=== PATIENT | female | born 1965 | race Caucasian/White ===

== ENCOUNTER → 2018-02-19 08:00 | Outpatient (CLI) | payer OTHER, BC, SELFPAY ==
--- NOTE | 2018-02-19 08:00 | DT_ITS ---
This patient was seen during an EMR downtime February 17, 2018 - February 24, 2018. This patient may have a combination of paper and electronic documentation or all paper documentation. All documentation is viewable within the e-chart portion of [employer] for each patient visit.
--- NOTE | 2018-02-19 08:10 | BI_ITS ---
MAMMOGRAPHY - BILATERAL SCREENING REASON FOR EXAM: Female, 52 years old. Routine annual screening examination. PERTINENT HISTORY: PERSONAL HX @ AGE 50 WITH RIGHT LUMPECTOMY - IMPLANT ON RT, LIFT ON LT ? SOME REUDUCTION TECHNIQUE: Digital bilateral breast jinny (3D mammographic acquisition) in the CC and MLO projections. 2-D mediolateral oblique (MLO) and craniocaudad (CC) views of both breasts were obtained. CAD: Full Field Digital Mammography with Computer Added Detection was performed. COMPARISON: August 19, 2017, March 12, 2017 and April 24, 2016 FINDINGS: Breast Composition: The breasts are heterogeneously dense, which may obscure small masses. There are no dominant masses or suspicious calcifications. There is a scar in the upper outer quadrant of the right breast appears less prominent when compared to the previous study. No other significant abnormalities are identified. BI/SCREENING MAMM (CAD), BILAT IMPRESSION: Stable bilateral screening mammogram. Yearly follow-up mammogram recommended. (A) ASSESSMENT CATEGORY: BIRADS Category 2: Benign. A letter regarding these results will be sent to the patient by the facility within 30 days. Approximately 10% of breast cancers are not detected by mammography. A normal mammogram should not delay biopsy of a clinically suspicious abnormality. [id number] Electronically Signed: Jonah Jones MD at 14:51 EDT Tel , Service support ,
== END ==
PROVIDERS: Family Provider Family Medicine; PCP Family Medicine; Visit Provider Surgery
DX: Z12.31 Encounter for screening mammogram for malignant neoplasm of breast (principal)
CPT/HCPCS: 77063; 77067

== ENCOUNTER → 2018-03-13 13:36 | Outpatient (CLI) | payer OTHER, BC, SELFPAY | PROVIDERS: Family Provider Family Medicine; PCP Family Medicine; Visit Provider Obstetrics & Gynecology | DX: R30.0 Dysuria (principal) | CPT/HCPCS: 87086; 87088 ==

== ENCOUNTER → 2018-04-18 09:03 | Outpatient (CLI) | payer OTHER, BC, SELFPAY ==
[2018-04-18 11:15] LABS: Anion Gap 5 (5-15); BUN 12 mg/dL (7-18); BUN/Creat Ratio 13.3 RATIO (10-20); Calcium,Total 8.9 mg/dL (8.5-10.1); Chloride 107 mmol/L (98-107); Cholesterol 164 mg/dL (200); EST Glomerular Filtration Rate 69 mL/min (>60); Est Glom Filt Rate - Afr Amer 84 mL/min (>60); Glucose 86 mg/dL (74-106); High Density Lipoprotein 76 mg/dL; Potassium 4.2 mmol/L (3.5-5.1); Sodium Level 143 mmol/L (136-145); Triglycerides 76 mg/dL; Very Low Density Lipoprotein 15 mg/dL (5-40)
== END ==
PROVIDERS: Family Provider Family Medicine; PCP Family Medicine; Visit Provider Family Medicine
DX: I10 Essential (primary) hypertension (principal)
CPT/HCPCS: 36415; 80048; 80061

== ENCOUNTER → 2018-07-29 15:07 | Outpatient (CLI) | payer OTHER, BC, SELFPAY ==
[2018-07-29 18:14] LABS: Anion Gap 7 (5-15); BUN 14 mg/dL (7-18); BUN/Creat Ratio 15.9 RATIO (10-20); Calcium,Total 9.4 mg/dL (8.5-10.1); Chloride 100 mmol/L (98-107); Creatinine, Serum 0.88 mg/dL (0.55-1.02); EST Glomerular Filtration Rate 71 mL/min (>60); Est Glom Filt Rate - Afr Amer 86 mL/min (>60); Glucose 91 mg/dL (74-106); Potassium 3.8 mmol/L (3.5-5.1); Sodium Level 136 mmol/L (136-145)
== END ==
PROVIDERS: Family Provider Family Medicine; PCP Family Medicine; Visit Provider Family Medicine
DX: I10 Essential (primary) hypertension (principal)
CPT/HCPCS: 36415; 80048

== ENCOUNTER → 2018-07-30 16:52 | Outpatient (CLI) | payer OTHER, BC, SELFPAY ==
[2018-07-30 17:44] LABS: Absolute Lymphocyte Count 1.47 X10^3/ul (0.83-4.51); Absolute Neutrophil Count 2.9 X10^3/uL (2.0-7.7); Basophil# 0.01 X10^3/uL; Basophil% 0.2 % (0-1); Eosinophil# 0.07 X10^3/uL; Eosinophils% 1.5 % (0-5); Hemoglobin 12.6 g/dl (12.0-15.0); Lymphocyte # 1.47 X10^3/ul (4.0); Lymphocyte % 30.7 % (19-41); Mean Corp Hgb Conc 31.5 g/gl (32-36); Mean Corpuscular Hgb 28.1 pg (27.0-32.0); Mean Corpuscular Volume 89.3 fL (81-99); Mean Platelet Vol. 11.1 fl (6.2-12.0); Monocyte% 6.3 % (0-10); Neutrophil # 2.94 X10^3/uL (2.7-7.7); Neutrophil % 61.3 % (47-70); Platelet Count 242 K/mm3 (150-450); RBC Distribution Width CV 12.1 % (11.6-14.6); RBC Distribution Width SD 38.9 fl (35.1-43.9); Red Blood Count 4.48 M/mm3 (4.2-5.4); White Blood Count 4.8 K/mm3 (4.4-11.0)
[2018-07-30 17:53] LABS: POSITIVE COUNT NO; POSITIVE DIFFERENTIAL NO; POSITIVE MORPHOLOGY NO
== END ==
PROVIDERS: Family Provider Family Medicine; PCP Family Medicine; Visit Provider Family Medicine
DX: Z01.818 Encounter for other preprocedural examination (principal)
CPT/HCPCS: 36415; 85025

== ENCOUNTER → 2018-09-01 15:22 | Outpatient (CLI) | payer OTHER, BC, SELFPAY ==
[2018-09-01 18:02] LABS: Absolute Lymphocyte Count 1.51 X10^3/ul (0.83-4.51); Absolute Neutrophil Count 2.9 X10^3/uL (2.0-7.7); Basophil# 0.03 X10^3/uL; Basophil% 0.6 % (0-1); Eosinophil# 0.11 X10^3/uL; Eosinophils% 2.2 % (0-5); Hematocrit 40.6 % (37-47); Hemoglobin 13.2 g/dl (12.0-15.0); Lymphocyte # 1.51 X10^3/ul (4.0); Lymphocyte % 30.6 % (19-41); Mean Corp Hgb Conc 32.5 g/gl (32-36); Mean Corpuscular Hgb 28.8 pg (27.0-32.0); Mean Corpuscular Volume 88.6 fL (81-99); Mean Platelet Vol. 11.8 fl (6.2-12.0); Monocyte# 0.34 X10^3/uL; Monocyte% 6.9 % (0-10); Neutrophil # 2.94 X10^3/uL (2.7-7.7); Neutrophil % 59.5 % (47-70); Platelet Count 209 K/mm3 (150-450); RBC Distribution Width CV 12.1 % (11.6-14.6); RBC Distribution Width SD 38.7 fl (35.1-43.9); Red Blood Count 4.58 M/mm3 (4.2-5.4); White Blood Count 4.9 K/mm3 (4.4-11.0)
[2018-09-01 18:06] LABS: Anion Gap 7 (5-15); BUN 13 mg/dL (7-18); BUN/Creat Ratio 14.5 RATIO (10-20); Chloride 100 mmol/L (98-107); EST Glomerular Filtration Rate 69 mL/min (>60); Est Glom Filt Rate - Afr Amer 84 mL/min (>60); Glucose 121 mg/dL (74-106); Potassium 3.5 mmol/L (3.5-5.1); Sodium Level 136 mmol/L (136-145)
[2018-09-01 18:18] LABS: POSITIVE COUNT NO; POSITIVE DIFFERENTIAL NO; POSITIVE MORPHOLOGY NO
--- OUTSIDE RECORDS SUMMARY | 2018-12-04 08:00 | XMS RPT_ITS ---
:1965 Author Organization OHIP Support Name Relationship Address Phone NORWESSCH Unavailable [address] + [place] [address] JESSICA CORDERO Unavailable [address] + [place] [address] NORWESSCH Unavailable [address] + [place] [address] JESSICA CORDERO Unavailable [address] + [place] [address] NORWESSCH Unavailable [address] + [place] [address] CONSUELO JESSICA Unavailable [address] + [place] [address] NORWESSCH Unavailable [address] + [place] [address] CONSUELO JESSICA Unavailable [address] + [place] [address] NORWESSCH Unavailable [address] + [place] [address] CAROLINA CORDEROE Unavailable [address] + [place] [address] NORWESSCH Unavailable [address] + [place] [address] CAROLINA CORDEROE Unavailable [address] + [place] [address] NORWESSCH Unavailable [address] + [place] [address] CONSUELO JESSICA Unavailable [address] + [place] [address] NORWESSCH Unavailable [address] + [place] [address] ZOWILLIAM, JESSICA Unavailable [address] + [place] [address] NORWESSCH Unavailable [address] + [place] [address] ZOWILLIAM JESSICA Unavailable [address] + [place] [address] NORWESSCH Unavailable [address] + [place] [address] ZOWILLIAM, JESSICA Unavailable [address] + [place] [address] NORWESSCH Unavailable [address] + [place] [address] ZOWILLIAM, JESSICA Unavailable [address] + [place] [address] Care Team Providers Name Role Phone Dimitri, Liza Attending Unavailable Jolliff, Liza Primary Care Unavailable Cebul, Logan Attending Unavailable Cebul, Logan Referring Unavailable Jolliff, Liza Primary Care Unavailable Cebul, Logan Attending Unavailable Jolliff, Liza Referring Unavailable Marcanthony, Sammi Attending Unavailable Jolliff, Liza Referring Unavailable Jolliff, Liza Primary Care Unavailable Marcanthony, Sammi Attending Unavailable Jolliff, Liza Primary Care Unavailable Marcanthony, Sammi Referring Unavailable Cebul, Logan Attending Unavailable Jolliff, Liza Referring Unavailable Jolliff, Liza Primary Care Unavailable Jolliff, Liza Attending Unavailable Jolliff, Lzia Referring Unavailable Jolliff, Liza Primary Care Unavailable Jolliff, Liza Attending Unavailable Jolliff, Liza Primary Care Unavailable Jolliff, Liza Attending Unavailable Jolliff, Liza Primary Care Unavailable Cebul, Logan Attending Unavailable Jolliff, Liza Referring Unavailable Klaudia Deal Attending Unavailable PROBLEMS PROBLEMS DATE TYPE CONDITION / CODE ATTENDING STATUS SOURCE 03/14/2018 Unknown R30.0 - Dysuria Harpreet, Active Melissa / R30.0(ICD-10) [facility] Repository 03/12/2018 Unknown Z12.31 - Logan Fletcher Active Melissa Encounter for [facility] screening [facility] mammogram for Repository malignant neoplasm of breast / Z12.31(ICD-10) PROCEDURES PROCEDURES No Procedure Records FoundRESULTS RESULTS BASIC METABOLIC Collected: 09/01/2018 Status: F Source: [place] PROFILE (BMP) 3:23 PM [facility] [place] CODE TESTS RESULT OUT OF RANGE REFERENCE UNITS LAB L501.0100 74-106 mg/dL High GLU 121 Result Comment: Fasting Glucose result from 100 to 125 mg/dL suggests IMPAIRED HOMEOSTASIS per A.D.A. criteria. Please note revised GLUCOSE reference range effective 2017. LAB L501.1000 7-18 mg/dL Normal BUN 13 LAB L501.1100 0.55-1.02 mg/dL Normal CREAT,SERUM 0.90 Result Comment: The validity of the calculated GFR AND GFRAA in patients over 70 years has not been determined. Clinical correlation is essential. LAB L501.1110 >60 mL/min Normal EST GFR 69 Result Comment: Non- GFR Calc LAB L501.1115 >60 mL/min Normal EST GFR - AA 84 Result Comment: GFR Calc LAB L501.1300 10-20 RATIO Normal BUN/CRE 14.5 LAB L501.2200 8.5-10.1 mg/dL CA Normal 9.0 LAB L501.5300 136-145 mmol/L NA Normal 136 LAB L501.5600 3.5-5.1 mmol/L K Normal 3.5 LAB L501.5900 98-107 mmol/L CL Normal 100 LAB L501.6100 21.0-32.0 mmol/L Normal CO2 29.0 LAB L501.6200 5-15 Normal GAP 7 Performed By: #### L500.2500 #### [facility] [address] [place], [place] [address]all [address]y. [place], [place], [address] CBC W/DIFF, AUTOMATED Collected: 09/01/2018 Status: F Source: [place] 3:23 PM [facility] [place] TYPE CODE TESTS RESULT OUT OF RANGE REFERENCE UNITS LAB L100.1000 4.4-11.0 K/mm3 Normal WBC 4.9 LAB L100.1200 4.2-5.4 M/mm3 Normal RBC 4.58 LAB L100.1300 12.0-15.0 g/dl Normal HGB 13.2 LAB L100.1400 37-47 % Normal HCT 40.6 LAB L100.1500 81-99 fL Normal MCV 88.6 LAB L100.1600 27.0-32.0 pg Normal MCH 28.8 LAB L100.1700 32-36 g/gl Normal MCHC 32.5 LAB L100.1810 11.6-14.6 % Normal RDW CV 12.1 LAB L100.1820 35.1-43.9 fl Normal RDW SD 38.7 LAB L100.1900 150-450 K/mm3 Normal PLT 209 LAB L100.2000 6.2-12.0 fl Normal MPV 11.8 LAB L100.2100 47-70 % Normal NEUT% 59.5 LAB L100.2200 19-41 % Normal LY% 30.6 LAB L100.2300 0-10 % Normal MONO% 6.9 LAB L100.2400 0-5 % Normal EO% 2.2 LAB L100.2500 0-1 % Normal BASO% 0.6 LAB L100.2550 0.0-0.9 % Normal IM GRAN % 0.200 Result Comment: IG% - Immature Granulocytes (promyelocytes, myelocytes and metamyelocytes) > 1% indicates that a LEFT SHIFT is Present. LAB L100.2620 2.0-7.7 X10 3/uL Normal Absolute Neut 2.9 LAB L100.2720 0.83-4.51 X10 3/ul Normal Absolute Lymph 1.51 Performed By: #### L100.0100 #### [facility] [address] [place], [address] SURGERY VISIT REPORT Observed: 08/21/2018 Status: F Source: [place] 8:06 AM [facility] [place] [facility] [address] [place] [address] OFFICE VISIT Date of Service: 08/21/18 MR#: [id number] Acct: [id number] Name: HOLLIS CORDERO Rep #: [id number] : 1965 Provider: Logan Fletcher MD Age/Sex: 52/F Location: [facility] Status: Signed Intake Intake Visit Reasons: wound check Chief Complaint: Yearly breast exam Allergies azithromycin [From Zithromax Z-Jose] Allergy (Verified 08/21/18 07:58) Rash Medications Levocetirizine Dihydrochloride [Xyzal] 5 mg PO DAILY 05/23/16 [History Confirmed 03/13/18] Losartan Potassium [Cozaar] 50 mg PO DAILY 05/23/16 [History Confirmed 03/13/18] Simvastatin [Zocor] 40 mg PO QHS 05/23/16 [History Confirmed 03/13/18] loratadine-pseudoephedrine ER 10 mg-240 mg tablet,extended [id number] 1 tab PO QDAY 03/13/18 [History Confirmed 03/13/18] meloxicam 15 mg tablet 15 mg PO QDAY 03/13/18 [History Confirmed 03/13/18] PFSH Medical History Postoperative wound breakdown (Acute) Ductal carcinoma in situ (DCIS) of right breast (Acute) Hyperlipemia (Acute) Hypertension (Chronic) Hx of fracture (Acute) h/o left breast augmentation (Acute) Surgical History S/P breast lumpectomy (Acute) S/P hysterectomy (Acute) History of (Acute) H/O right mastectomy (Acute) S/P TRAM (transverse rectus abdominis muscle) flap breast reconstruction (Acute) Status post left breast reconstruction (Acute) Family History Father Diabetes Heart disease HPI HPI HPI: HOLLIS CORDERO, is a 52 F who presents to the office today for surgical evaluation of a post plastic surgery wound left breast. The patient recently has had fat grafting in the upper outer quadrant of her right breast at the site of a previous lumpectomy done for DCIS. My office notes from February 2018 below are explanatory. 2 weeks ago at [facility] she had fat grafting again performed upper outer quadrant right breast and she had reduction mammoplasty left breast. She has had drainage from the 6 o'clock position left breast inframammary area. She presents for me to assist with evaluation of this site. HPI: HOLLIS CORDERO, is a 52 F who presents to the office today for surgical follow-up regarding breast conservation surgery upper outer quadrant right breast that are performed for her with a diagnosis of DCIS. Previous notes reflect the following. HPI: HOLLIS CORDERO, is a 51 F who presents to the office today for surgical evaluation regarding postop concern. One week ago the patient had plastic surgical intervention regarding her right breast. Previously she had had breast conservation surgery with an upper outer quadrant right breast lumpectomy for DCIS margins were positive and did redo resection was required check at the initial aspect she also had a sentinel node biopsy. It is of additional note that after her original procedure she had a postoperative hematoma. She was concerned about the soft tissue loss at the resection site. So 1 week ago she had a prosthesis placed as well as fat grafting to the area. I have information dating back to September 06, 2016. On that date because DCIS was close to a margin I did a reexcision lumpectomy. That had been requested by both hematology oncology and radiation oncology. The reexcision showed a one by one by less than 1 mm area of residual DCIS. 3 out of 12 blocks had residual DCIS. Grade 3. The new margin was felt to be clear. Estrogen receptor 73% moderate. Progesterone was 7% weak. HER-2/manolo 3+. HER-2/manolo by FISH not performed. Pathologic staging was T(DCIS)Nx Mx Her original procedure was May 25, 2016. That was a wire localized lumpectomy upper outer right breast with right axillary blue dye sentinel lymph node biopsy. A request was made by hematology oncology to pursue the sentinel lymph node biopsy because of the extent of the DCIS. As noted above the original margin was felt to be positive. This preempted the re-excisional biopsy. Logan Fletcher M.D., F.A.C.S. Her current status is that she has had breast conservation work upper outer quadrant right breast. She had radiation treatment. She then had reduction mammoplasty on the left and she had a implant placed on the right with fat grafting in the upper outer quadrant of the right breast to fill in the lumpectomy defect area. There is still some dimpling at that area. There is been no nipple discharge. She has had recent mammograms with good results. Exam Chest Other: Right breast: Slight ecchymosis firmness noted upper outer quadrant right breast with otherwise well-healed curvilinear incision. Recent fat grafting causing induration. No distinct palpable masses in the medial portion of the breast. Left breast: Reduction mammoplasty incision. At the 6 o'clock position of the areola there is some slight wound separation. It appears to be healing at the dermal level just slight epidermal miss approximation. At the 6 o'clock position inframammary area there is evidence of skin necrosis and suture cutting. Assessment AND Plan Problems 1. Postoperative wound dehiscence, initial encounter T81.31XA Plan My clinical exam of the right breast is limited due to the recent fat grafting. I am not able to detect a focal area of concern. It is of note that her primary disease was DCIS upper outer quadrant right breast. [place] lymph node was negative Her left breast reduction mammoplasty has evidence of wound healing problems at the 6 o'clock position inframammary area. There is evidence of suture necrosis cutting through. I remove the sutures were today. There is a 8 x 8 mm area of dermal necrosis which I sharply scissor debrided today. It otherwise appears clean. There is no evidence of any cellulitis. I have instructed her to utilize Silvadene ointment twice daily to that inframammary wound. Patient already has some at home from previous wound issues. She would utilize that until resolved. Regarding her history of breast cancer her most recent mammograms were February 2018. She is due for repeat imaging February 2019 and I can follow-up clinically at that time. She has had an opportunity to ask and have questions answered. Further office follow-up regarding her wound left breast can be as needed. CC: Dr. Liza Fletcher M.D., F.A.C.S. Coding Level of Care Code Off vis,est,level 2 Diagnoses Postoperative wound dehiscence, initial encounter T81.31XA Encounter type: initial encounter 08/21/18 0806 <Electronically signed by Logan Fletcher MD> Date Logan Fletcher MD Cosigner Signature: Date (if applicable) CC: Liza Mosley MD CBC W/DIFF, AUTOMATED Collected: 07/30/2018 Status: F Source: [place] 4:53 PM [facility] [place] TYPE CODE TESTS RESULT OUT OF RANGE REFERENCE UNITS LAB L100.1000 4.4-11.0 K/mm3 Normal WBC 4.8 LAB L100.1200 4.2-5.4 M/mm3 Normal RBC 4.48 LAB L100.1300 12.0-15.0 g/dl Normal HGB 12.6 LAB L100.1400 37-47 % Normal HCT 40.0 LAB L100.1500 81-99 fL Normal MCV 89.3 LAB L100.1600 27.0-32.0 pg Normal MCH 28.1 LAB L100.1700 32-36 g/gl Low MCHC 31.5 LAB L100.1810 11.6-14.6 % Normal RDW CV 12.1 LAB L100.1820 35.1-43.9 fl Normal RDW SD 38.9 LAB L100.1900 150-450 K/mm3 Normal PLT 242 LAB L100.2000 6.2-12.0 fl Normal MPV 11.1 LAB L100.2100 47-70 % Normal NEUT% 61.3 LAB L100.2200 19-41 % Normal LY% 30.7 LAB L100.2300 0-10 % Normal MONO% 6.3 LAB L100.2400 0-5 % Normal EO% 1.5 LAB L100.2500 0-1 % Normal BASO% 0.2 LAB L100.2550 0.0-0.9 % Normal IM GRAN % 0.000 Result Comment: IG% - Immature Granulocytes (promyelocytes, myelocytes and metamyelocytes) > 1% indicates that a LEFT SHIFT is Present. LAB L100.2620 2.0-7.7 X10 3/uL Normal Absolute Neut 2.9 LAB L100.2720 0.83-4.51 X10 3/ul Normal Absolute Lymph 1.47 Performed By: #### L100.0100 #### [facility] [address] [place], [address] BASIC METABOLIC Collected: 07/29/2018 Status: F Source: [place] PROFILE (BMP) 3:14 PM [facility] [place] TYPE CODE TESTS RESULT OUT OF RANGE REFERENCE UNITS LAB L501.0100 74-106 mg/dL Normal GLU 91 Result Comment: Please note revised GLUCOSE reference range effective 2017. LAB L501.1000 7-18 mg/dL Normal BUN 14 LAB L501.1100 0.55-1.02 mg/dL Normal CREAT,SERUM 0.88 Result Comment: The validity of the calculated GFR AND GFRAA in patients over 70 years has not been determined. Clinical correlation is essential. LAB L501.1110 >60 mL/min Normal EST GFR 71 Result Comment: Non- GFR Calc LAB L501.1115 >60 mL/min Normal EST GFR - AA 86 Result Comment: GFR Calc LAB L501.1300 10-20 RATIO Normal BUN/CRE 15.9 LAB L501.2200 8.5-10.1 mg/dL CA Normal 9.4 LAB L501.5300 136-145 mmol/L NA Normal 136 LAB L501.5600 3.5-5.1 mmol/L K Normal 3.8 LAB L501.5900 98-107 mmol/L CL Normal 100 LAB L501.6100 21.0-32.0 mmol/L Normal CO2 29.0 LAB L501.6200 5-15 Normal GAP 7 Performed By: #### L500.2500 #### [facility] [address] [place], [address] BASIC METABOLIC Collected: 04/18/2018 Status: F Source: [place] PROFILE (BMP) 9:11 AM [facility] [place] TYPE CODE TESTS RESULT OUT OF RANGE REFERENCE UNITS LAB L501.0100 74-106 mg/dL Normal GLU 86 Result Comment: Please note revised GLUCOSE reference range effective 2017. LAB L501.1000 7-18 mg/dL Normal BUN 12 LAB L501.1100 0.55-1.02 mg/dL Normal CREAT,SERUM 0.90 Result Comment: The validity of the calculated GFR AND GFRAA in patients over 70 years has not been determined. Clinical correlation is essential. LAB L501.1110 >60 mL/min Normal EST GFR 69 Result Comment: Non- GFR Calc LAB L501.1115 >60 mL/min Normal EST GFR - AA 84 Result Comment: GFR Calc LAB L501.1300 10-20 RATIO Normal BUN/CRE 13.3 LAB L501.2200 8.5-10.1 mg/dL CA Normal 8.9 LAB L501.5300 136-145 mmol/L NA Normal 143 LAB L501.5600 3.5-5.1 mmol/L K Normal 4.2 LAB L501.5900 98-107 mmol/L CL Normal 107 LAB L501.6100 21.0-32.0 mmol/L Normal CO2 31.0 LAB L501.6200 5-15 Normal GAP 5 Performed By: #### L500.2500, L500.4100 #### [facility] [address] [place], [address] LIPID PROFILE Collected: 04/18/2018 Status: F Source: [place] 9:11 AM [facility] [place] TYPE CODE TESTS RESULT OUT OF RANGE REFERENCE UNITS LAB L501.4900 200 mg/dL Normal CHOL 164 Result Comment: <200 mg/dL Desirable 200-240 mg/dL Borderline >240 mg/dL High Risk LAB L501.5000 mg/dL Normal TRIG 76 Result Comment: The drugs N-Acetylcysteine and Metamizole may falsely depress this assay. Serum Triglycerides Reference Interval Normal <150 mg/dL Borderline high 150 - 199 mg/dL High 200 - 499 mg/dL Very High > or = 500 mg/dL LAB L501.6400 mg/dL Normal HDL 76 Result Comment: The drugs N-Acetylcysteine and Metamizole may falsely depress this assay. Reference Range HDL <40 mg/dL Low HDL Cholesterol HDL >or= 60 mg/dL High HDL Cholesterol LAB L501.6500 0-130 mg/dL Normal LDL 73 LAB L501.6600 5-40 mg/dL Normal VLDL 15 Performed By: #### L500.2500, L500.4100 #### [facility] [address] [place], [place], [address] PATTERN [employer]UM MAKER OFFICE VISIT Observed: 03/14/2018 Status: F Source: [place] REPORT 1:52 AM [facility] [place] [facility] [place] [place] [address] [place] [address] OFFICE VISIT Date of Service: 03/13/18 MR#: [id number] Acct: [id number] Name: PRADEEP CORDERODAVID Street Rep #: [id number] : 1965 Provider: Sammi Mullins MD Age/Sex: 52/F [place] [facility] [place]: Signed Intake Vital Signs03/13/18 Height 5 ft 4 in 03/13/18 Weight: 212 lb 6 oz 03/13/18 Body Mass Index (BMI) 36.4 Intake Visit Reasons: FOLLOW UP UTI PER SM Chief Complaint: Follow Up UTI Property Utilization Manager Required: No Is patient in pain?: No Allergies azithromycin [From Zithromax Z-Jose] Allergy (Verified 03/13/18 15:23) Rash Medications Levocetirizine Dihydrochloride [Xyzal] 5 mg PO DAILY 05/23/16 [History Confirmed 03/13/18] Losartan Potassium [Cozaar] 50 mg PO DAILY 05/23/16 [History Confirmed 03/13/18] Simvastatin [Zocor] 40 mg PO QHS 05/23/16 [History Confirmed 03/13/18] loratadine-pseudoephedrine ER 10 mg-240 mg tablet,extended [id number] 1 tab PO QDAY 03/13/18 [History Confirmed 03/13/18] meloxicam 15 mg tablet 15 mg PO QDAY 03/13/18 [History Confirmed 03/13/18] Is last menstrual period known: No Post menopausal: Yes Patient : No : No PFSH Medical History Ductal carcinoma in situ (DCIS) of right breast (Acute) Hyperlipemia (Acute) Hypertension (Chronic) Hx of fracture (Acute) h/o left breast augmentation (Acute) Surgical History S/P breast lumpectomy (Acute) S/P hysterectomy (Acute) History of (Acute) H/O right mastectomy (Acute) S/P TRAM (transverse rectus abdominis muscle) flap breast reconstruction (Acute) Status post left breast reconstruction (Acute) Family History Father Diabetes Heart disease Social History Smoking Status: Never smoker second hand exposure: No alcohol intake: never substance use type: does not use caffeine: No what type of physical activity do you participate in: none seatbelt use: always HPI FOLLOW UP UTI PER : Details: HOLLIS CORDERO is a 52 year old who presents for follow up of a uti. she was in [place] and started with signfiiacnt hematuria. she had a severe uti and was treated. symptoms resolved and she is afebrile now. it did start after intercourse and this is all new for her Female Reproductive History Questions: Dyspareunia: Yes (dryness) Pregancy History 2 Elective abortions Hx Para 2 Spontaneous abortions Past Pregnancies Del. DatName GA/WeeksOutcome Route [facility] LocaProviderFOB e ht en ia tn Unknown rojas Unknown ignacio ROS Const Constitutional: Reports system reviewed and no additional complaints, except as docu : Reports as per HPI Exam Const General: cooperative, healthy appearing, comfortable, no acute distress HENMT Head: normal to inspection, normocephalic Ears: hearing grossly normal bilaterally, external ears normal Nose: external nose normal, nares normal Face and sinus: normal facial exam Resp Effort AND Inspection: normal respiratory effort Musc Other: gross motor intact no deficits, full bilateral strength Skin General: no rashes or lesions noted Results BMSUA Office Urine Color Yellow Last Edit by Darlene Carney on 03/13/18 10:18 Office Urine Clarity Clear Last Edit by Darlene Carney on 03/13/18 10:18 Assessment AND Plan Problems 1. Acute cystitis with hematuria N30.01 Plan repeat culture, discussed if recurrent recommend postcoital prophylaxis Orders Orders: Coding Level of Care Code Off vis,est,level 3 Diagnoses Acute cystitis with hematuria N30.01 Urinary tract infection type: acute cystitis Hematuria presence: with hematuria 03/14/18 0152 <Electronically signed by Sammi Mullisn MD> Date Sammi Mullins MD Cosigner Signature: Date (if applicable) CC: SURGERY VISIT REPORT Observed: 03/13/2018 Status: F Source: [place] 5:51 PM [facility] [place] [facility] [address] [place] [address]. [address] [place] [address] OFFICE VISIT Date of Service: 03/13/18 MR#: [id number] Acct: [id number] Name: HOLLIS CORDERO Rep #: [id number] : 1965 Provider: Logan Fletcher MD Age/Sex: 52/F Location: [facility] Status: Signed Intake Intake Visit Reasons: YEARLY BILATERAL BREAST EXAM Chief Complaint: Yearly breast exam Property Utilization Manager Required: No Is patient in pain?: No Allergies azithromycin [From Zithromax Z-Jose] Allergy (Verified 03/13/18 15:23) Rash Medications Levocetirizine Dihydrochloride [Xyzal] 5 mg PO DAILY 05/23/16 [History Confirmed 03/13/18] Losartan Potassium [Cozaar] 50 mg PO DAILY 05/23/16 [History Confirmed 03/13/18] Simvastatin [Zocor] 40 mg PO QHS 05/23/16 [History Confirmed 03/13/18] loratadine-pseudoephedrine ER 10 mg-240 mg tablet,extended [id number] 1 tab PO QDAY 03/13/18 [History Confirmed 03/13/18] meloxicam 15 mg tablet 15 mg PO QDAY 03/13/18 [History Confirmed 03/13/18] PFSH Medical History Ductal carcinoma in situ (DCIS) of right breast (Acute) Hyperlipemia (Acute) Hypertension (Chronic) Hx of fracture (Acute) h/o left breast augmentation (Acute) Surgical History S/P breast lumpectomy (Acute) S/P hysterectomy (Acute) History of (Acute) H/O right mastectomy (Acute) S/P TRAM (transverse rectus abdominis muscle) flap breast reconstruction (Acute) Status post left breast reconstruction (Acute) Family History Father Diabetes Heart disease Social History Smoking Status: Never smoker second hand exposure: No alcohol intake: never substance use type: does not use caffeine: No what type of physical activity do you participate in: none seatbelt use: always HPI HPI HPI: HOLLIS CORDERO, is a 52 F who presents to the office today for surgical follow-up regarding breast conservation surgery upper outer quadrant right breast that are performed for her with a diagnosis of DCIS. Previous notes reflect the following. HPI: HOLLIS CORDERO, is a 51 F who presents to the office today for surgical evaluation regarding postop concern. One week ago the patient had plastic surgical intervention regarding her right breast. Previously she had had breast conservation surgery with an upper outer quadrant right breast lumpectomy for DCIS margins were positive and did redo resection was required check at the initial aspect she also had a sentinel node biopsy. It is of additional note that after her original procedure she had a postoperative hematoma. She was concerned about the soft tissue loss at the resection site. So 1 week ago she had a prosthesis placed as well as fat grafting to the area. I have information dating back to September 06, 2016. On that date because DCIS was close to a margin I did a reexcision lumpectomy. That had been requested by both hematology oncology and radiation oncology. The reexcision showed a one by one by less than 1 mm area of residual DCIS. 3 out of 12 blocks had residual DCIS. Grade 3. The new margin was felt to be clear. Estrogen receptor 73% moderate. Progesterone was 7% weak. HER-2/manolo 3+. HER-2/manolo by FISH not performed. Pathologic staging was T(DCIS)Nx Mx Her original procedure was May 25, 2016. That was a wire localized lumpectomy upper outer right breast with right axillary blue dye sentinel lymph node biopsy. A request was made by hematology oncology to pursue the sentinel lymph node biopsy because of the extent of the DCIS. As noted above the original margin was felt to be positive. This preempted the re-excisional biopsy. Logan Fletcher M.D., F.A.C.S. Her current status is that she has had breast conservation work upper outer quadrant right breast. She had radiation treatment. She then had reduction mammoplasty on the left and she had a implant placed on the right with fat grafting in the upper outer quadrant of the right breast to fill in the lumpectomy defect area. There is still some dimpling at that area. There is been no nipple discharge. She has had recent mammograms with good results. Mammogram Computer Aided Screening - 02/19/18 [facility] [place] Imaging Services [address] [place] [address] SCREENING MAMM (CAD), LEONIDAS MR#: [id number]:[id number] Name: HOLLIS CORDERO [facility] #:[id number] : 1965 52 From: Jonah Jones MD PCP:Liza Mosley MD Status:REG CLI Study:SCREENING MAMM (CAD), BILAT Date of Exam:02/19/18 Exam#[id number] Ordering Dr: Logan Fletcher MD MAMMOGRAPHY - BILATERAL SCREENING REASON FOR EXAM: Female, 52 years old. Routine annual screening examination. PERTINENT HISTORY: PERSONAL HX @ AGE 50 WITH RIGHT LUMPECTOMY - IMPLANT ON RT, LIFT ON LT ? SOME REUDUCTION TECHNIQUE: Digital bilateral breast jinny (3D mammographic acquisition) in the CC and MLO projections. 2-D mediolateral oblique (MLO) and craniocaudad (CC) views of both breasts were obtained. CAD: Full Field Digital Mammography with Computer Added Detection was performed. COMPARISON: August 19, 2017, March 12, 2017 and April 24, 2016 FINDINGS: Breast Composition: The breasts are heterogeneously dense, which may obscure small masses. There are no dominant masses or suspicious calcifications. There is a scar in the upper outer quadrant of the right breast appears less prominent when compared to the previous study. No other significant abnormalities are identified. BI/SCREENING MAMM (CAD), BILAT IMPRESSION: Stable bilateral screening mammogram. Yearly follow-up mammogram recommended. (A) ASSESSMENT CATEGORY: BIRADS Category 2: Benign. A letter regarding these results will be sent to the patient by the facility within 30 days. Approximately 10% of breast cancers are not detected by mammography. A normal mammogram should not delay biopsy of a clinically suspicious abnormality. [id number] Electronically Signed: Jonah Jones MD at 14:51 EDT Tel , Service support , I did review her mammograms with her. She does have significant scarring still in the upper outer quadrant of the right breast. Hard to determine how much this is related to her surgery and radiation and then subsequent fat grafting. Spiculation is present but this is felt to be consistent with her postoperative change. Exam Chest Other: Right breast: Very nice healed curvilinear incision upper outer quadrant right breast. Some slight soft tissue defect. Incision has well-healed very nicely. Diffuse fibrous change of the right breast. There is a healed inframammary incision at 6:00 but that scar slightly broader than the original scar in the upper quadrant right breast. No focally concerning mass. No axillary or clavicular adenopathy Left wrist: Evidence of reduction mammoplasty incisions. These incisions are broad and quite red. There is no signs of active infection. No focal mass. No nipple discharge. No axillary or clavicular adenopathy Resp Effort AND Inspection: normal respiratory effort Auscultation: clear to auscultation bilaterally Results BMSUA Office Urine Color Yellow Last Edit by Darlene Carney on 03/13/18 10:18 Office Urine Clarity Clear Last Edit by Darlene Carney on 03/13/18 10:18 Assessment AND Plan Problems 1. S/P breast lumpectomy Z98.890 2. Ductal carcinoma in situ (DCIS) of right breast D05.11 Plan 52-year-old female. Based upon the treatment for DCIS upper outer quadrant right breast she actually is at lower risk for recurrence. There are no focal areas currently of oncologic concern. She is not currently being routinely followed by hematology oncology or radiation oncology or plastic surgery. I have offered her a follow-up office visit at 6 months. She has had an opportunity ask and have questions answered. I am quite comfortable with her current progress. Believe that her long-term prognosis is quite good. Cc: Dr. Liza Fletcher M.D., F.A.C.S. Coding Level of Care Code Off vis,est,level 3 Diagnoses S/P breast lumpectomy Z98.890 Ductal carcinoma in situ (DCIS) of right breast D05.11 Time Spent (min) 30 03/13/18 7321 <Electronically signed by Logan Fletcher MD> Date Logan Fletcher MD Cosigner Signature: Date (if applicable) CC: Liza Mosley MD Observed: 03/13/2018 Status: F Source: [place] CULTURE, URINE 1:37 PM [facility] [facility] U[place] Culture Below infection level. ORGANISM 1: GNR lactose grove worker [place] Count <1000 Performed By: #### M100.0650 #### [facility] [address] [place], [address] DOWNTIME REPORT Observed: 03/06/2018 Status: F Source: [place] 12:17 PM [facility] Medical Records Department [address] [place] [address] Downtime Report MR#: [id number] Acct: [id number] Name: HOLLIS CORDERO Rep #: [id number] : 1965 52 From: Joe Ballard PCP: Liza Mosley MD Status: REG CLI This patient was seen during an EMR downtime February 17, 2018 - February 24, 2018. This patient may have a combination of paper and electronic documentation or all paper documentation. All documentation is viewable within the e-chart portion of [employer] for each patient visit. SCREENING MAMM (CAD), Observed: 02/20/2018 Status: F Source: [place] BILAT 12:06 PM [facility] Imaging Services [address] [place] [address] SCREENING MAMM (CAD), BILAT MR#: [id number] Acct: [id number] Name: HOLLIS CORDERO Rep #: [id number] : 1965 F 52 From: Jonah Jones MD PCP: Liza Mosley MD Status: REG CLI Study: SCREENING MAMM (CAD), BILAT Date of Exam: 02/19/18 Exam# [id number] Ordering Dr: Logan Fletcher MD MAMMOGRAPHY - BILATERAL SCREENING REASON FOR EXAM: Female, 52 years old. Routine annual screening examination. PERTINENT HISTORY: PERSONAL HX @ AGE 50 WITH RIGHT LUMPECTOMY - IMPLANT ON RT, LIFT ON LT ? SOME REUDUCTION TECHNIQUE: Digital bilateral breast jinny (3D mammographic acquisition) in the CC and MLO projections. 2-D mediolateral oblique (MLO) and craniocaudad (CC) views of both breasts were obtained. CAD: Full Field Digital Mammography with Computer Added Detection was performed. COMPARISON: August 19, 2017, March 12, 2017 and April 24, 2016 FINDINGS: Breast Composition: The breasts are heterogeneously dense, which may obscure small masses. There are no dominant masses or suspicious calcifications. There is a scar in the upper outer quadrant of the right breast appears less prominent when compared to the previous study. No other significant abnormalities are identified. BI/SCREENING MAMM (CAD), BILAT IMPRESSION: Stable bilateral screening mammogram. Yearly follow-up mammogram recommended. (A) ASSESSMENT CATEGORY: BIRADS Category 2: Benign. A letter regarding these results will be sent to the patient by the facility within 30 days. Approximately 10% of breast cancers are not detected by mammography. A normal mammogram should not delay biopsy of a clinically suspicious abnormality. [id number] Electronically Signed: Jonah Jones MD at 14:51 EDT Tel , Service support , CC: Liza Mosley MD; Logan Fletcher MD Karate Instructor: Signed ALLERGIES ALLERGIES DATE TYPE / CODE NAME / CODE REACTION SEVERITY SOURCE 08/21/2018 Drug azithromycin Rash Unknown [facility] Allergy/4160 /[id number]( Hospital 25532(SNOMED RXNORM) Repository CT) ENCOUNTERS ENCOUNTERS ADMIT/DISCHARGE ACCOUNT ADMITTING ENCOUNTER LOCATION SOURCE NUMBER CLASS 09/01/2018 [id number] Ambulatory [place] 4 [facility] ing:MFPLAB Repository 08/21/2018 [id number] Ambulatory BMSBuilding:B [place] 7 [facility] Repository 08/21/2018/ [id number] Ambulatory BMSBuilding:B [place] 8 4 [facility] Repository 07/30/2018 [id number] Ambulatory [place] 8 [facility] ing:MFPLAB Repository 07/29/2018 [id number] Ambulatory [place] 2 [facility] ing:MFPLAB Repository 04/18/2018 [id number] Ambulatory [place] 5 [facility] ing:LAB Repository 03/13/2018/ [id number] Ambulatory BMSBuilding:B [place] 8 4 [facility] Repository 03/13/2018 [id number] Ambulatory [place] 3 [facility] ing:LABSPEC Repository 03/13/2018/ [id number] Ambulatory BMSBuilding:B [place] 8 1 [facility] Repository 02/25/2018 [id number] Ambulatory BMSBuilding:B [place] 1 [facility] Repository 02/19/2018 [id number] Ambulatory [place] 4 [facility] ing:OPBI Repository PAYERS PAYERS ENCOUNTER GUARANTOR PAYER SUBSCRIBER SOURCE 09/01/[address] Primary HOLLIS L [place] [id number] Insurance:MEDICAL ZODYDOB: [facility] [id number] Number: Repository [address]Myd: [phone]) [id number] 464 () Date:4780-98-24TQ [address] [place] [address]AJ: 09/01/2018 Secondary KITA ZODYDOB: [place] Insurance:ANTHEMPolic [id number] Community y Number: Hospital [id number] Repository Date:6495-97-47IX [address] [place] [address] 72278ZY: 09/01/2018 Tertiary NOT GIVENUNK [place] Insurance:SELF PAY [facility] Number: Effective Repository Date:2018-09-01 08/21/2018 HOLLIS L Primary HOLLIS L [place] [id number] Insurance:MEDICAL ZODYDOB: [facility] [id number] Number: Repository [address]Fwa: [phone] [id number] 46 (HP) Date:5805-96-08UG [address] [place] [address]ZA: 08/21/2018 Secondary KITA ZODYDOB: [place] Insurance:ANTHEMPolic [id number] [facility] y Number: Hospital [id number] Repository Date:6250-27-08DC [address] [place] [address] 84376PI: 08/21/2018 Tertiary NOT GIVENUNK [place] Insurance:SELF PAY [facility] Number: Effective Repository Date:2018-08-21 08/21/2018 HOLLIS L Primary HOLLIS L [place] [id number] Insurance:MEDICAL ZODYDOB: [facility] [id number] Number: Repository [address]Fvy: 330 [id number] 46 (HP) Date:2026-93-72LA [address] [place] [address]RQ: 08/21/2018 Secondary KITA ZODYDOB: [place] Insurance:ANTHEMPolic [id number] Community y Number: Hospital [id number] Repository Date:6848-69-49IC [address]DBF, [place] [address]UI: 08/21/2018 Tertiary NOT GIVENUNK [place] Insurance:SELF PAY Community [facility] Number: Effective Repository Date:2018-08-21 07/30/2018 HOLLIS L Primary HOLLIS L [place] [id number] Insurance:MEDICAL ZODYDOB: Community [facility] [id number] Number: Repository [phone]: [phone]) [id number] 46 (HP) Date:3539-61-58QP [address] [place] [address]WG: 07/30/2018 Secondary KITA ZODYDOB: [place] Insurance:ANTHEMPolic [id number] Community y Number: Hospital [id number] Repository Date:3064-54-73CT [address] [place] [address] 84166OO: 07/30/2018 Tertiary NOT GIVENUNK [place] Insurance:SELF PAY [facility] Hospital Number: Effective Repository Date:2018-07-30 07/29/2018 HOLLIS L Primary HOLLIS L [place] [id number] Insurance:MEDICAL ZODYDOB: [facility] 1942-73-[place] Number: Repository [address]Pzr: 330 [id number] 46 (HP) Date:5237-22-91MR [address] [place] [address]GD: 07/29/2018 Secondary KITA ZODYDOB: [place] Insurance:ANTHEMPolic [id number] Community y Number: Hospital [id number] Repository Date:8293-30-67DA [address] [place] [address]YV: 07/29/2018 Tertiary NOT GIVENUNK [place] Insurance:SELF PAY [facility] Number: Effective Repository Date:2018-07-29 04/18/2018 HOLLIS L Primary HOLLIS L [place] [id number] Insurance:MEDICAL ZODYDOB: Community [facility] [id number] Number: Repository [id number]: [phone] [id number] 46 (HP) Date:8029-82-92GL [address] [place] [address]NE: 04/18/2018 Secondary KITA ZODYDOB: [place] Insurance:ANTHEMPolic [id number] Community y Number: Hospital [id number] Repository Date:3555-38-15DB [address] [place] [address] 922[address]UD: 04/18/2018 Tertiary NOT GIVENUNK [place] Insurance:SELF PAY [facility] Number: Effective Repository Date:2018-04-18 03/13/2018 HOLLIS L Primary HOLLIS L [place] [id number] Insurance:MEDICAL ZODYDOB: Community [facility] [id number] Number: Repository [address]Ymf: ([phone]) [id number] (HP) Date:5042-83-20OB [address] [place] [address]PC: 03/13/2018 Secondary KITA ZODYDOB: [place] Insurance:ANTHEMPolic [id number] Community y Number: Hospital [id number] Repository Date:4187-94-52DN [address] [place] [address] 655[address]RH: 03/13/2018 Tertiary NOT GIVENUNK [place] Insurance:SELF PAY [facility] Number: Effective Repository Date:2018-03-13 03/13/2018 HOLLIS L Primary HOLLIS L [place] [id number] Insurance:MEDICAL ZODYDOB: Community [facility] [id number] Number: Repository [phone]: [phone] [id number] (HP) Date:8518-97-97TV [address] [place] [address]PD: 03/13/2018 Secondary KITA ZODYDOB: [place] Insurance:ANTHEMPolic [id number] Community y Number: Hospital [id number] Repository Date:7967-51-75EG [address] [place] [address] 016[address]ET: 03/13/2018 Tertiary NOT GIVENUNK [place] Insurance:SELF PAY [facility] Number: Effective Repository Date:2018-03-13 03/13/2018 HOLLIS L Primary HOLLIS L [place] [id number] Insurance:MEDICAL ZODYDOB: [facility] [id number], [place] Number: Repository [address]Pap: 330 [id number] (HP) Date:1991-01-11BX [address] [place] [address]LM: 03/13/2018 Secondary KITA ZODYDOB: [place] Insurance:ANTHEMPolic [id number] Community y Number: Hospital [id number] Repository Date:5259-38-37XU [address] [place] [address] 470[address]TY: 03/13/2018 Tertiary NOT GIVENUNK [place] Insurance:SELF PAY [facility] Number: Effective Repository Date:2018-03-13 02/25/2018 HOLLIS L Primary HOLLIS L [place] [id number] Insurance:MEDICAL ZODYDOB: [facility] [id number] Number: Repository [address]Nzm: 330 [id number] (HP) Date:3333-96-32SN [address] [place] [address]JO: 02/25/2018 Secondary KITA ZODYDOB: [place] Insurance:ANTHEMPolic [id number] Community y Number: Hospital [id number] Repository Date:8321-29-74NK [address]QNRTZGX, [place] [address]RW: 02/25/2018 Tertiary NOT GIVENUNK [place] Insurance:SELF PAY [facility] Hospital Number: Effective Repository Date:2018-01-10 02/19/2018 HOLLIS L Primary HOLLIS L [place] [id number] Insurance:MEDICAL ZODYDOB: [facility] [id number] [place] Number: Repository [address]Jqb: [phone]) [id number] () Date:2303-08-41YU [address], [place] [address]RO: 02/19/2018 Secondary KITA ZODYDOB: [place] Insurance:ANTHEMPolic [id number] [facility] y Number: [facility] [id number] Repository Date:9284-30-91IF [address]XCTJGGV, [place] [address]YE: 02/19/2018 Tertiary NOT GIVENUNK [place] Insurance:SELF PAY [facility] Number: Effective Repository Date:2018-01-10
== END ==
PROVIDERS: Family Provider Family Medicine; PCP Family Medicine; Visit Provider Family Medicine
DX: Z01.818 Encounter for other preprocedural examination (principal); I10 Essential (primary) hypertension
CPT/HCPCS: 36415; 80048; 85025

== ENCOUNTER → 2019-01-12 | Outpatient (CLI) | payer OTHER, SELFPAY ==
[2018-12-16 08:23] VITALS: BMI 35.4
--- NOTE | 2019-01-12 07:24 | BI_ITS ---
MAMMOGRAPHY - BILATERAL SCREENING REASON FOR EXAM: Female, 53 years old. Routine annual screening examination. PERTINENT HISTORY: Personal history of breast cancer. Prior right lumpectomy. Prior right breast prostheses. TECHNIQUE: Digital bilateral breast jinny (3D mammographic acquisition) in the CC and MLO projections. 2-D mediolateral oblique (MLO) and craniocaudad (CC) views of both breasts were obtained. CAD: Full Field Digital Mammography with Computer Added Detection was performed. COMPARISON: Comparison is made with prior study dated February 19, 2018 and August 19, 2017. FINDINGS: Breast Composition: The breasts are heterogeneously dense, which may obscure small masses. There are no dominant masses or suspicious calcifications. The patient is status post lumpectomy in the deep upper lateral aspect of the right breast with overlying skin thickening. This is in keeping with postsurgical scarring. No other significant abnormalities are identified. There has been no significant change since the prior study. BI/SCREENING MAMM (CAD), BILAT IMPRESSION: Stable bilateral screening mammogram. Yearly follow-up mammogram recommended. (A) ASSESSMENT CATEGORY: BIRADS Category 2: Benign. A letter regarding these results will be sent to the patient by the facility within 30 days. Approximately 10% of breast cancers are not detected by mammography. A normal mammogram should not delay biopsy of a clinically suspicious abnormality. [id number] Electronically Signed: Claus Ambriz, at 12:17 EDT , Service support ,
== END | disposition home or self-care (01) ==
LOC: OPBI 07:04
PROVIDERS: Family Provider Family Medicine; PCP Family Medicine; Referring Provider Surgery; Visit Provider Surgery
DX: Z12.31 Encounter for screening mammogram for malignant neoplasm of breast (principal); Z85.3 Personal history of malignant neoplasm of breast
CPT/HCPCS: 77063; 77067

== ENCOUNTER → 2019-12-01 07:01 | Outpatient (CLI) | payer OTHER, SELFPAY ==
[2019-11-30 08:28] VITALS: BMI 35.4
--- NOTE | 2019-12-01 07:03 | BI_ITS ---
MAMMOGRAPHY - BILATERAL SCREENING REASON FOR EXAM: Female, 54 years old. Routine annual screening examination. PERTINENT HISTORY: Personal history of breast cancer. History of prior right lumpectomy with the left breast reduction and right breast implant. TECHNIQUE: Digital bilateral breast lamonte (3D mammographic acquisition) in the CC and MLO projections. 2-D mediolateral oblique (MLO) and craniocaudad (CC) views of both breasts were obtained. CAD: Full Field Digital Mammography with Computer Added Detection was performed. COMPARISON: Comparison is made with prior examination dated January 12, 2019 and February 19, 2018. FINDINGS: Breast Composition: The breasts are heterogeneously dense, which may obscure small masses. There are no dominant masses or suspicious calcifications. Stable appearance of the right breast implant. The patient is status post lumpectomy of the deep upper lateral aspect of the right breast. Postoperative scarring is seen at that site. Stable skin thickening of the right breast. Surgical clips are once again seen in the right axillary region. No other significant abnormalities are identified. There has been no significant change since the prior study. BI/SCREEN MAMM (CAD) W/LAMONTE BILAT IMPRESSION: Stable bilateral screening mammogram. Yearly follow-up mammogram recommended. (A) ASSESSMENT CATEGORY: BIRADS Category 2: Benign. A letter regarding these results will be sent to the patient by the facility within 30 days. Approximately 10% of breast cancers are not detected by mammography. A normal mammogram should not delay biopsy of a clinically suspicious abnormality. [id number] Electronically Signed: Claus Ambriz, at 9:35 EDT , Service support ,
== END ==
PROVIDERS: PCP Family Medicine; Referring Provider Surgery; Visit Provider Surgery
DX: Z12.31 Encounter for screening mammogram for malignant neoplasm of breast (principal)
CPT/HCPCS: 77063; 77067

== ENCOUNTER → 2020-08-08 16:25 | Outpatient (CLI) | payer OTHER, SELFPAY ==
[2020-04-11 14:13] VITALS: BMI 35.4
== END ==
PROVIDERS: PCP Family Medicine; Visit Provider Family Medicine
DX: U07.1 COVID-19 (principal); J06.9 Acute upper respiratory infection, unspecified
CPT/HCPCS: 87635; U0003

== ENCOUNTER → 2020-12-01 08:07 | Outpatient (CLI) | payer OTHER, SELFPAY ==
[2020-04-11 14:13] VITALS: BMI 35.4
--- NOTE | 2020-12-01 08:09 | BI_ITS ---
MAMMOGRAPHY - BILATERAL SCREENING REASON FOR EXAM: Female, 55 years old. Routine annual screening examination. PERTINENT HISTORY: Personal history of breast cancer. Prior right lumpectomy with the right breast implant. Left breast reduction surgery. TECHNIQUE: Digital bilateral breast lamonte (3D mammographic acquisition) in the CC and MLO projections. 2-D mediolateral oblique (MLO) and craniocaudad (CC) views of both breasts were obtained. CAD: Full Field Digital Mammography with Computer Added Detection was performed. COMPARISON: Comparison is made with prior study dated 12/01/2019 and 01/12/2019. FINDINGS: Breast Composition: The breasts are heterogeneously dense, which may obscure small masses. There are no dominant masses or suspicious calcifications. Surgical clips are seen in the right axillary region. The patient is status post lumpectomy in the deep upper lateral aspect of the right breast with postoperative scarring. Stable appearance of the right breast implant. Stable benign-appearing left axillary lymph nodes. No other significant abnormalities are identified. There has been no significant change since the prior study. BI/SCRN MAMM (CAD)W/LAMONTE BILAT IMPRESSION: Stable bilateral screening mammogram. Yearly follow-up mammogram recommended. (A) ASSESSMENT CATEGORY: BIRADS Category 2: Benign. A letter regarding these results will be sent to the patient by the facility within 30 days. Approximately 10% of breast cancers are not detected by mammography. A normal mammogram should not delay biopsy of a clinically suspicious abnormality. [id number] Electronically Signed: Claus Ambriz MD at 9:55 EDT , Service support ,
== END ==
PROVIDERS: PCP Family Medicine; Referring Provider Surgery; Visit Provider Surgery
DX: Z12.31 Encounter for screening mammogram for malignant neoplasm of breast (principal); D05.11 Intraductal carcinoma in situ of right breast
CPT/HCPCS: 77063; 77067

== ENCOUNTER → 2020-12-17 08:03 | Outpatient (CLI) | payer OTHER, SELFPAY ==
[2020-04-11 14:13] VITALS: BMI 35.4
[2020-12-17 08:33] LABS: Absolute Neutrophil Count 5.3 X10^3/uL (2.0-7.7); Basophil# 0.06 X10^3/uL; Basophil% 0.8 % (0-1); Eosinophils% 1.3 % (0-5); Hematocrit 42.6 % (37-47); Hemoglobin 13.7 g/dL (12.0-15.0); Lymphocyte % 21.3 % (19-41); Mean Corp Hgb Conc 32.2 g/dL (32-36); Mean Corpuscular Volume 90.1 fL (81-99); Mean Platelet Vol. 10.4 fl (6.2-12.0); Monocyte% 5.3 % (0-10); NRBC Flagged by Analyzer 0 % (0-5); Neutrophil # 5.34 X10^3/uL (2.7-7.7); Neutrophil % 71.2 % (47-70); Platelet Count 252 K/mm3 (150-450); RBC Distribution Width CV 12.2 % (11.6-14.6); RBC Distribution Width SD 40.1 fl (35.1-43.9); Red Blood Count 4.73 M/mm3 (4.2-5.4); White Blood Count 7.5 K/mm3 (4.4-11.0)
[2020-12-17 08:40] LABS: Microalbumin,Random Urine 11.8 mg/L (NO RANGE EST.); Microalbumin:Creatinine Ratio 7.6 mg/g CRE (<30 mg/g CRE)
[2020-12-17 08:44] LABS: AST(SGOT) 18 U/L (15-37); Alanine Aminotransfer ALT/SGPT 38 U/L (13-56); Anion Gap 4 (5-15); BUN 17 mg/dL (7-18); BUN/Creat Ratio 16.7 RATIO (10-20); Calcium,Total 9.1 mg/dL (8.5-10.1); Chloride 106 mmol/L (98-107); Cholesterol 208 mg/dL (200); Creatinine, Serum 1.02 mg/dL (0.55-1.02); EST Glomerular Filtration Rate 59 mL/min (>60); Est Glom Filt Rate - Afr Amer 72 mL/min (>60); Glucose 103 mg/dL (74-106); High Density Lipoprotein 101 mg/dL; Magnesium 2.1 mg/dL (1.6-2.6); Potassium 4.1 mmol/L (3.5-5.1); Sodium Level 139 mmol/L (136-145); Triglycerides 73 mg/dL; Very Low Density Lipoprotein 15 mg/dL (5-40)
== END ==
PROVIDERS: PCP Family Medicine; Visit Provider Family Medicine
DX: I10 Essential (primary) hypertension (principal); K21.9 Gastro-esophageal reflux disease without esophagitis; E78.5 Hyperlipidemia, unspecified
CPT/HCPCS: 36415; 80048; 80061; 82043; 82570; 83735; 84450; 84460; 85025

== ENCOUNTER → 2021-02-14 | Outpatient (CLI) | payer OTHER, SELFPAY ==
[2020-04-11 14:13] VITALS: BMI 35.4
== END | disposition home or self-care (01) ==
PROVIDERS: PCP Family Medicine; Visit Provider Family Medicine
DX: Z71.84 Encounter for health counseling related to travel (principal)
CPT/HCPCS: 87635; U0005; U0003

== ENCOUNTER → 2021-07-14 14:05 | Outpatient (CLI) | payer OTHER, SELFPAY ==
--- NOTE | 2021-07-14 14:23 | BI_ITS ---
MAMMOGRAPHY - UNILATERAL DIAGNOSTIC: RIGHT BREAST REASON FOR EXAM: Female, 55 years old. Right breast DCIS. PERTINENT HISTORY: Personal history of breast cancer. Prior left breast reduction surgery. Right breast implant. TECHNIQUE: Digital unilateral breast jinny (3D mammographic acquisition) in the CC and MLO projections. 2-D mediolateral oblique (MLO) and craniocaudad (CC) views of both breasts were obtained. CAD: Full Field Digital Mammography with Computer Added Detection was performed. COMPARISON: Comparison is made with prior study of 12/01/2020 and 12/01/2019. FINDINGS: Breast Composition: The breasts are heterogeneously dense, which may obscure small masses. Surgical clips are seen in the right axillary region. The previously seen microcalcifications in the right axillary region at increased in number. A biopsy is recommended for further evaluation. The right breast implant is unchanged. Once again, architectural distortion is seen in the upper outer aspect of the right breast at the lumpectomy site. No other significant abnormalities are identified. BI/DIAG MAMM W/CAD, UNILAT IMPRESSION: Since prior study, there has been an increase in number of calcifications in the cluster is seen in the right axillary region. Biopsy is recommended. ASSESSMENT CATEGORY: BIRADS Category 4: Suspicious - Biopsy Should Be Considered. A letter regarding these results will be sent to the patient by the facility within 30 days. Approximately 10% of breast cancers are not detected by mammography. A normal mammogram should not delay biopsy of a clinically suspicious abnormality. Electronically Signed: Claus Ambriz MD at 15:28 EDT , Service support ,
== END ==
PROVIDERS: PCP Family Medicine; Referring Provider Surgery; Visit Provider Surgery
DX: D05.11 Intraductal carcinoma in situ of right breast (principal)
CPT/HCPCS: 77061; 77065; G0279

== ENCOUNTER → 2021-07-21 10:56 | Outpatient (CLI) | payer OTHER, SELFPAY ==
--- NOTE | 2021-07-21 | IMM_PTH ---
PATIENT: HOLLIS CORDERO LOC: [facility] U#:[id number] AGE/SX: 59/F ROOM: RE07/21/[address]: Dr. Logan Fletcher MD : 1965 BED: DIS: SPEC #: [id number] RECD: 07/24/21 14:52 STATUS: KIERSTEN RUT #: [id number] SERENA: 07/21/21 00:[address]: Logan Fletcher DEPT: IMMUNOHISTOCHEMISTRY RECD BY: Shiela Roy ENTERED: 07/24/21 14:53 SP TYPE: IMMUNO OTHR DR: Dr. Liza Mosley MD Tissues: Right breast, NOS Procedures: CK8 (add) MACRO (add) P53 (add) Vimentin (add) Pankeratin (initial) PHYSICIAN & INSTITUTION [place] [id number] SPECIMEN INFORMATION: Tissue Source: Right breast Clinical Info: Right medial UIQ breast microcalcifications Specimen Number: [id number] #1 CPT code: 99885, 17521 x4 METHODOLOGY: Deparaffinized sections of prefer/formalin-fixed tissue or PAP/DQ stained slides are incubated with monoclonal/polyclonal antibodies/oligonucleotide probes. Localization is made via biotin free immunoperoxidase method. Appropriate controls are performed and reacted as expected. Results on target cell population are indicated in the following table: RESULTS: ANTIBODY / CLONE RESULT Block 1 AE1-3 (AE1/AE3/PCK26) negative Macro (HAM-56) positive Vimentin (V9) positive P53 (DO-7) negative CK8 ([id number]) negative These tests were developed and their performance characteristics determined by [facility]. They may not have been cleared or approved by the U.S. Food and Drug Administration. The FDA has determined that such clearance or approval is not necessary. The above immunohistochemical/dualISH markers are ordered and reviewed by the Pathologist. INTERPRETATION: Right breast, medial upper inner quadrant microcalcifications, stereotactic core biopsy: Fibrosis, benign histiocytic reaction and calcifications. AM:nate 07/25/2021
--- NOTE | 2021-07-21 | BRBX_PTH ---
PATIENT: HOLLIS CORDERO LOC: [facility] U#:[id number] AGE/SX: 59/F ROOM: RE07/21/[address]: Dr. Logan Fletcher MD : 1965 BED: DIS: SPEC #: [id number] RECD: 07/21/21 13:31 STATUS: KIERSTEN RUT #: [id number] SERENA: 07/21/21 00:[address]: Logan Fletcher DEPT: SURGICAL PATHOLOGY RECD BY: Can Carrion ENTERED: 07/21/21 13:32 SP TYPE: BREAST BX OTHR DR: Dr. Liza Mosley MD Tissues: Right breast, NOS Procedures: Surgery Specimen Level IV HEADER OPERATION: Right stereotactic breast biopsy PRE-OP DIAGNOSIS: Right medial Q breast microcalcifications TISSUE SUBMITTED: Right breast core tissue ISCHEMIC TIME: 1 minute FIXATION TIME: 55.5 hours MICROSCOPIC DIAGNOSIS Right medial breast, upper inner quadrant, stereotactic core biopsy: Banal clustered microcalcifications associated with fibrosis, chronic inflammation, benign histiocytic reaction and fat necrosis. See comment. AM:nate 07/24/2021 COMMENT Immunohistochemistry ([id number]) supports the above diagnosis. Case has been reviewed in consultation with Dr. Cee who concurs with the above diagnosis. IDC:ALLEY MICROSCOPIC DESCRIPTION Slides are reviewed. GROSS DESCRIPTION Received in fixative is one container labeled with the patient's name and designated right breast. The specimen consists of multiple elongated fragments of nicole-yellow fibroadipose tissue that in aggregate measure 5 x 3 x 2.5 cm. The entire specimen is submitted in two cassettes. / ALLEY:nate 07/21/21 TC:5 CPT: 81562
--- NOTE | 2021-07-21 10:49 | HP.PCM_ITS ---
History and Physical Date of Admission: 07/21/21 Intake Visit Reasons: abn mammo Chief Complaint: abn mammo Workers Compensation Attorney Required: No Is patient in pain?: No Allergies azithromycin [From Zithromax Z-Jose] Allergy (Verified 07/20/21 09:32) Rash Is last menstrual period known: No Post menopausal: Yes Patient : No PFS Medical History (Updated 07/20/21 @ 09:[address] Logan Fletcher MD) Ductal carcinoma in situ (DCIS) of right breast h/o left breast augmentation Hx of fracture Hyperlipemia Hypertension Postoperative wound breakdown Surgical History H/O right mastectomy History of S/P breast lumpectomy S/P hysterectomy S/P TRAM (transverse rectus abdominis muscle) flap breast reconstruction Status post left breast reconstruction Family History Father Diabetes Heart disease Aunt Ovarian cancer Social History Smoking Status: Never smoker second hand exposure: No alcohol intake: never substance use type: does not use caffeine: No what type of physical activity do you participate in: none seatbelt use: always additional social history: Patient is teacher at [employer] HPI HPI HPI: HOLLIS CORDERO, is a 55 F who presents to the office today for surgical follow-up of abnormal right unilateral mammogram. 6 months ago I had demonstrated some microcalcifications to areas of the right breast. Requested a right unilateral mammogram follow-up. 1 of those 2 areas seen in the right axillary area of increased in nature. There is persistent distortion at the lumpectomy site and she has has had a fat graft there. She does not detect anything on her examination I have information dating back to September 06, 2016. On that date because DCIS was close to a margin I did a reexcision lumpectomy. That had been requested by both hematology oncology and radiation oncology. The reexcision showed a one by one by less than 1 mm area of residual DCIS. 3 out of 12 blocks had residual DCIS. Grade 3. The new margin was felt to be clear. Estrogen receptor 73% moderate. Progesterone was 7% weak. HER-2/manolo 3+. HER-2/manolo by FISH not performed. Pathologic staging was T(DCIS)Nx Mx Her original procedure was May 25, 2016. That was a wire localized lumpectomy upper outer right breast with right axillary blue dye sentinel lymph node biopsy. A request was made by hematology oncology to pursue the sentinel lymph node biopsy because of the extent of the DCIS. As noted above the original margin was felt to be positive. This preempted the re-excisional biopsy.It is of additional note that after her original procedure she had a postoperative hematoma. She was concerned about the soft tissue loss at the resection site. So she had a prosthesis placed as well as fat grafting to the area. She also has had a reduction mammoplasty on the left 07/14/2021 MAMMOGRAPHY - UNILATERAL DIAGNOSTIC: RIGHT BREAST REASON FOR EXAM: Female, 55 years old. Right breast DCIS. PERTINENT HISTORY: Personal history of breast cancer. Prior left breast reduction surgery. Right breast implant. TECHNIQUE: Digital unilateral breast lamonte (3D mammographic acquisition) in the CC and MLO projections. 2-D mediolateral oblique (MLO) and craniocaudad (CC) views of both breasts were obtained. CAD: Full Field Digital Mammography with Computer Added Detection was performed. COMPARISON: Comparison is made with prior study of 12/01/2020 and 12/01/2019. FINDINGS: Breast Composition: The breasts are heterogeneously dense, which may obscure small masses. Surgical clips are seen in the right axillary region. The previously seen microcalcifications in the right axillary region at increased in number. A biopsy is recommended for further evaluation. The right breast implant is unchanged. Once again, architectural distortion is seen in the upper outer aspect of the right breast at the lumpectomy site. No other significant abnormalities are identified. BI/DIAG MAMM W/CAD, UNILAT IMPRESSION: Since prior study, there has been an increase in number of calcifications in the cluster is seen in the right axillary region. Biopsy is recommended. ASSESSMENT CATEGORY: BIRADS Category 4: Suspicious - Biopsy Should Be Considered. A letter regarding these results will be sent to the patient by the facility within 30 days. Approximately 10% of breast cancers are not detected by mammography. A normal mammogram should not delay biopsy of a clinically suspicious abnormality. Electronically Signed: Claus Ambriz MD at 15:28 EDT , Service support , 12/01/2020 MAMMOGRAPHY - BILATERAL SCREENING REASON FOR EXAM: Female, 55 years old. Routine annual screening examination. PERTINENT HISTORY: Personal history of breast cancer. Prior right lumpectomy with the right breast implant. Left breast reduction surgery. TECHNIQUE: Digital bilateral breast lamonte (3D mammographic acquisition) in the CC and MLO projections. 2-D mediolateral oblique (MLO) and craniocaudad (CC) views of both breasts were obtained. CAD: Full Field Digital Mammography with Computer Added Detection was performed. COMPARISON: Comparison is made with prior study dated 12/01/2019 and 01/12/2019. FINDINGS: Breast Composition: The breasts are heterogeneously dense, which may obscure small masses. There are no dominant masses or suspicious calcifications. Surgical clips are seen in the right axillary region. The patient is status post lumpectomy in the deep upper lateral aspect of the right breast with postoperative scarring. Stable appearance of the right breast implant. Stable benign-appearing left axillary lymph nodes. No other significant abnormalities are identified. There has been no significant change since the prior study. BI/SCRN MAMM (CAD)W/LAMONTE BILAT IMPRESSION: Stable bilateral screening mammogram. Yearly follow-up mammogram recommended. (A) ASSESSMENT CATEGORY: BIRADS Category 2: Benign. A letter regarding these results will be sent to the patient by the facility within 30 days. Approximately 10% of breast cancers are not detected by mammography. A normal mammogram should not delay biopsy of a clinically suspicious abnormality. [id number] Electronically Signed: Claus Ambriz MD at 9:55 EDT , Service support , ROS General General: No weight change, appetite, fatigue, colon cancer, breast cancer or weakness HEENT HEENT: No difficulty swallowing, eye injury, eye surgery, swollen glands or hoarseness Endo Endocrine: No thyroid disease, diabetes mellitus, thyroid cancer, Hair loss, heat intolerance or cold intolerance Cardio Cardiovascular: Yes high blood pressure; No murmur, pacemaker, heart disease, atrial fibrillation, heart attack, heart stent, palpitations, shortness of breat with exertion or chest pain Psych Psychiatric: No depression, anxiety or hearing voices Resp Respiratory: No shortness of breath, No sleep apnea, No cough, No COPD, No asthma, No emphysema and No wheezing Gastro Gastrointestinal: No abdominal pain, No nausea or vomiting, No diarrhea, No cons tipation, No blood in stool, No acid reflux, No hemorrhoids, No ulcers, No gallbladder problem and No black,tarry stools Sanket Hematologic: No blood thinners, No blood disorders, No bleeding, No anemia and No blood clots Neuro Neurologic: No weakness Exam Chest Other: Right breast: Well-healed curvilinear incision upper quadrant right breast. Well-healed right axillary incision. No focal mass. Mild diffuse fibrous change. Some tenderness lower outer right breast. Breast implant noted. Left breast reduction noted. No focal mass. No nipple discharge. No axillary or clavicular adenopathy. Assessment and Plan Assessment and Plan (1) Abnormal mammogram of right breast: Status: Acute Plan Details Additional Comments: Abnormal mammogram with clustered polymorphic calcifications right axillary area. My suspicion is that these are degenerative calcifications however they have increased in number. The patient did have DCIS right breast positive margin and had a reexcision to get clean margins. I propose for a stereotactic needle core biopsy right upper outer quadrant axillary breast. She is aware of technique, benefit, risk of alternatives. An attempt will be made at hopeful complete removal. She has had an opportunity to ask and have questions answered. We will schedule and expedite her care. Copy: Dr. Napoleon Cano and Dr. Liza Fletcher M.D., F.A.C.S. I have re-examined the patient. There are no clinical changes since date of exam. Logan Fletcher M.D., F.A.C.S.
--- NOTE | 2021-07-21 12:08 | PCM.OPRPT ---
Problems Associated Problem List Diagnoses (1) Abnormal mammogram of right breast: Report of Operation Date of Procedure: 07/21/21 Pre-Operative Diagnosis: Microcalcifications superior right breast axilla Post-Operative Diagnosis: Microcalcifications superior right breast Surgery/Procedure Performed:: Stereotactic needle core biopsy upper outer right breast Description of Surgical Findings:: Timeout and informed consent was obtained. 55-year-old female was taken to the stereotactic unit placed prone the table left breast was initially placed on the lateral medial view anticipating more of an axillary approach. Imaging was able to identify the microcalcifications and then stereotactic images were obtained but the depth suggested that it was more anterior so the arrangement was converted to a medial lateral approach to the upper outer right breast axillary area. Again the microcalcifications in question rapidly identified. Stereotactic images were obtained. Digital information was obtained on a single core site. The breast was prepped with Betadine. 1% lidocaine was used as a local anesthetic and a total of 10 cc was used. A 8 gauge mammotome core needle was advanced to prefire depth. Target on incinerator plant laborer was selecting replacing image 1. Because of the very superficial nature of the microcalcifications I had to adjust to a 12 mm core length. 12 cores were obtained. Imaging demonstrated several cores with microcalcifications present. Repeat breast imaging suggested microcalcifications still present in the patient had wanted to have the vast majority removed if feasible. We reimaged and relocalized the remaining set of calcifications. The core needle was reinserted and 6 more cores were obtained. A subsequent view suggested the vast majority Fredy cases removed. A small marking clip was left at 12 o'clock position. She was released with advised pressure was held for hemostasis. Steri-Strips Telfa OpSite dressings applied. She was given activity wound care instructions. The specimens had already immediately been placed in formalin for analysis. Specimens 18 cores. Drains none. Blood loss minimal. Logan Fletcher M.D., F.A.C.S. Surgeon: Logan Fletcher
== END ==
PROVIDERS: PCP Family Medicine; Referring Provider Surgery; Visit Provider Surgery
DX: N60.31 Fibrosclerosis of right breast (principal); I10 Essential (primary) hypertension; E78.5 Hyperlipidemia, unspecified; Z78.0 Asymptomatic menopausal state; Z85.3 Personal history of malignant neoplasm of breast; Z79.899 Other long term (current) drug therapy
CPT/HCPCS: 19081; 88305; 88341; 88342; J7050

== ENCOUNTER 2021-12-21 09:45 | Outpatient (CLI) | payer OTHER, SELFPAY ==
[2021-12-21 11:22] LABS: AST(SGOT) 20 U/L (15-37); Alanine Aminotransfer ALT/SGPT 34 U/L (13-56); Anion Gap 3 (5-15); BUN 19 mg/dL (7-18); BUN/Creat Ratio 17.6 RATIO (10-20); Calcium,Total 9.4 mg/dL (8.5-10.1); Chloride 111 mmol/L (98-107); Cholesterol 200 mg/dL (200); Creatinine, Serum 1.08 mg/dL (0.55-1.02); EST Glomerular Filtration Rate 55 mL/min (>60); Est Glom Filt Rate - Afr Amer 67 mL/min (>60); Glucose 109 mg/dL (74-106); High Density Lipoprotein 97 mg/dL; Potassium 4.3 mmol/L (3.5-5.1); Sodium Level 142 mmol/L (136-145); Triglycerides 49 mg/dL; Very Low Density Lipoprotein 10 mg/dL (5-40)
[2021-12-21 13:27] LABS: Microalbumin:Creatinine Ratio 4.8 mg/g CRE (<30 mg/g CRE)
== END 2021-12-21 23:59 | disposition home or self-care (01) ==
LOC: LAB 09:46
PROVIDERS: PCP Family Medicine; Referring Provider Family Medicine; Visit Provider Family Medicine
DX: E78.5 Hyperlipidemia, unspecified (principal); I10 Essential (primary) hypertension
CPT/HCPCS: 36415; 80048; 80061; 82043; 82570; 84450; 84460

== ENCOUNTER → 2022-07-20 | Outpatient (CLI) | payer OTHER, SELFPAY ==
--- NOTE | 2022-07-20 10:02 | BI_ITS ---
MAMMOGRAPHY - BILATERAL SCREENING REASON FOR EXAM: Female, 56 years old. Routine annual screening examination. PERTINENT HISTORY: Personal history of breast cancer. Prior right lumpectomy and breast implant. TECHNIQUE: Digital bilateral breast lamonte (3D mammographic acquisition) in the CC and MLO projections. 2-D mediolateral oblique (MLO) and craniocaudad (CC) views of both breasts were obtained. CAD: Full Field Digital Mammography with Computer Added Detection was performed. COMPARISON: Comparison is made with prior study of 12/01/2020 and 12/01/2019. FINDINGS: Breast Composition: The breasts are heterogeneously dense, which may obscure small masses. There are no dominant masses or suspicious calcifications. The patient is status post lumpectomy in the deep upper lateral aspect of the right breast with resultant postoperative deformity. A right-sided breast prosthesis is seen. Surgical clips are seen in the right axillary region. No other significant abnormalities are identified. There has been no significant change since the prior study. BI/SCRN MAMM (CAD)W/LAMONTE BILAT IMPRESSION: Stable bilateral screening mammogram. Yearly follow-up mammogram recommended. (A) ASSESSMENT CATEGORY: BIRADS Category 2: Benign. A letter regarding these results will be sent to the patient by the facility within 30 days. Approximately 10% of breast cancers are not detected by mammography. A normal mammogram should not delay biopsy of a clinically suspicious abnormality. [id number] Electronically Signed: Claus Ambriz MD at 11:15 EDT ,
== END | disposition home or self-care (01) ==
LOC: OPBI 10:01
PROVIDERS: PCP Family Medicine; Visit Provider Surgery
DX: Z12.31 Encounter for screening mammogram for malignant neoplasm of breast (principal); Z85.3 Personal history of malignant neoplasm of breast
CPT/HCPCS: 77063; 77067

== ENCOUNTER → 2022-09-20 | Outpatient (CLI) | payer OTHER, SELFPAY ==
--- NOTE | 2022-09-20 16:07 | VDLE_ITS ---
Reason For Study: pain RIGHT LEFT GSV is normal. GSV is normal. CFV is compressible, spontaneous, phasic, CFV is compressible, spontaneous, phasic, competent and demonstrates normal competent, and demonstrates normal augmentation. augmentation. FV is compressible, spontaneous, phasic, FV is compressible, spontaneous, phasic, competent and demonstrates normal competent and demonstrates normal augmentation. augmentation. POP V is compressible, spontaneous, phasic, POP V is compressible, spontaneous, phasic, competent and demonstrates normal competent and demonstrates normal augmentation. augmentation. T/P Trunk is compressible. T/P Trunk is compressible. PTV is compressible. PTV is compressible. RT PerV is compressible. LT PerV is compressible. Hypoechoic area behind the knee measuring .61 x 2.63 cm. Area is nonvascular. Procedure This is a venous duplex using B-mode, color flow and spectral Doppler. Exam performed in department. The exam was diagnostic. A preliminary report was called and/or faxed to Dr. Fletcher. VL/Venous Duplex US - Moiz Extrem Interpretation Summary No evidence for acute deep venous thrombosis bilateral lower extremities with p atent and compressible bilateral great saphenous veins. Right popliteal space 0.61 x 2.63 cm hypoechoic nonvascular structure consistent with a Louise's cyst. Clinical correlation woul d be appropriate. Ordering Physician: Logan Fletcher Referring Physician: Liza Mosley M.D. Performed By: Guzman Crawford RVMichael
== END | disposition home or self-care (01) ==
PROVIDERS: PCP Family Medicine; Referring Provider Surgery; Visit Provider Surgery
DX: M79.606 Pain in leg, unspecified (principal); M71.20 Synovial cyst of popliteal space [Baker], unspecified knee
CPT/HCPCS: 93970

== ENCOUNTER → 2022-10-24 | Outpatient (CLI) | payer OTHER, SELFPAY ==
--- NOTE | 2022-10-24 09:09 | EKG12_ITS ---
Test Reason : PRE Blood Pressure : / mmHG Vent. Rate : 072 BPM Atrial Rate : 072 BPM P-R Int : 188 ms QRS Dur : 088 ms QT Int : 390 ms P-R-T Axes : 060 060 065 degrees QTc Int : 427 ms Normal sinus rhythm Normal ECG Confirmed by LEONA HANCOCK, YOUNG ([id number]), website/blog editor LELE CHAND ([id number]) on 10/24/2022 2:46:45 PM Referred By: FREDERIC Confirmed By:YOUNG DELGADILLO MD
[2022-10-24 10:09] LABS: Hematocrit 42.6 % (37-47); Hemoglobin 13.9 g/dL (12.0-15.0); Mean Corp Hgb Conc 32.6 g/dL (32-36); Mean Corpuscular Hgb 28.8 pg (27.0-32.0); Mean Corpuscular Volume 88.4 fL (81-99); Mean Platelet Vol. 10.7 fl (6.2-12.0); Platelet Count 268 K/mm3 (150-450); RBC Distribution Width CV 12.7 % (11.6-14.6); RBC Distribution Width SD 41.3 fl (35.1-43.9); Red Blood Count 4.82 M/mm3 (4.2-5.4); White Blood Count 5.5 K/mm3 (4.4-11.0)
[2022-10-24 10:30] LABS: Anion Gap 6 (5-15); BUN 23 mg/dL (7-18); BUN/Creat Ratio 22.3 RATIO (10-20); Calcium,Total 9.5 mg/dL (8.5-10.1); Chloride 106 mmol/L (98-107); Creatinine, Serum 1.03 mg/dL (0.55-1.02); EST Glomerular Filtration Rate 58 mL/min (>60); Est Glom Filt Rate - Afr Amer 71 mL/min (>60); Glucose 162 mg/dL (74-106); Potassium 4.1 mmol/L (3.5-5.1); Sodium Level 141 mmol/L (136-145)
== END | disposition home or self-care (01) ==
PROVIDERS: PCP Family Medicine; Visit Provider Physician Assistant
DX: Z01.810 Encounter for preprocedural cardiovascular examination (principal)
CPT/HCPCS: 36415; 80048; 85027; 93005

== ENCOUNTER → 2022-11-02 | Outpatient (CLI) | payer OTHER, SELFPAY ==
--- NOTE | 2022-11-02 15:01 | VDLE_ITS ---
Reason For Study: Pain RIGHT GSV is normal. CFV is compressible, spontaneous, phasic, competent and demonstrates normal augmentation. FV is compressible, spontaneous, phasic, competent and demonstrates normal augmentation. POP V is compressible, spontaneous, phasic, competent and demonstrates normal augmentation. T/P Trunk is compressible. PTV is compressible. RT PerV is compressible. Nonvascularized structure noted in the right popliteal fossa that measures 1.34 x 3.32 x 5.05 cm. Procedure This is a venous duplex using B-mode, color flow and spectral Doppler. Exam performed in department. A preliminary report was called and/or faxed to [facility]. VL/Venous Duplex US, Unilateral Interpretation Summary There is no evidence of right lower extremity deep vein thrombosis. Right great saphenous vein appears patent and compressible segmentally. Right popliteal fossa 1.34 x 3.32 x 5.05 cm none vascular structure consistent with a Louise's cyst. Previously on September 20 this area measured 0.61 x 2.63 cm. Ordering Physician: Babatunde Mccormack Referring Physician: Liza Mosley M.D. Performed By: Zita Gu RVT
== END | disposition home or self-care (01) ==
LOC: CVS 14:59
PROVIDERS: PCP Family Medicine; Referring Provider Orthopaedic Surgery; Visit Provider Orthopaedic Surgery
DX: M79.604 Pain in right leg (principal)
CPT/HCPCS: 93971

== ENCOUNTER → 2022-12-28 | Outpatient (CLI) | payer OTHER, SELFPAY ==
[2022-12-28 12:59] LABS: Hemoglobin A1c 6.9 % (3.8-5.6)
[2022-12-28 13:02] LABS: Microalbumin,Random Urine 10.2 mg/L (NO RANGE EST.); Microalbumin:Creatinine Ratio 6.2 mg/g CRE (<30 mg/g CRE)
[2022-12-28 13:21] LABS: AST(SGOT) 17 U/L (15-37); Alanine Aminotransfer ALT/SGPT 28 U/L (13-56); Albumin, Serum 3.6 g/dL (3.2-5.0); Alkaline Phosphatase 72 U/L (45-117); Anion Gap 4 (5-15); BUN 16 mg/dL (7-18); Bilirubin, Direct 0.19 mg/dL (0.00-0.30); Calcium,Total 9.3 mg/dL (8.5-10.1); Chloride 110 mmol/L (98-107); Cholesterol 194 mg/dL (200); Creatinine, Serum 1.07 mg/dL (0.55-1.02); EST Glomerular Filtration Rate 56 mL/min (>60); Est Glom Filt Rate - Afr Amer 68 mL/min (>60); Globulin 3.6 g/dL (2.2-4.2); Glucose 124 mg/dL (74-106); High Density Lipoprotein 82 mg/dL; Potassium 4.1 mmol/L (3.5-5.1); Protein, Total 7.2 g/dL (6.4-8.2); Sodium Level 138 mmol/L (136-145); Thyroid Stim Hormone (TSH) 1.19 uIU/mL (0.358-3.74); Triglycerides 105 mg/dL; Very Low Density Lipoprotein 21 mg/dL (5-40)
== END | disposition home or self-care (01) ==
LOC: MFPLAB 10:28
PROVIDERS: PCP Family Medicine; Visit Provider Family Medicine
DX: E11.69 Type 2 diabetes mellitus with other specified complication (principal); E66.9 Obesity, unspecified
CPT/HCPCS: 36415; 80048; 80061; 80076; 82043; 82570; 83036; 84443

== ENCOUNTER → 2023-02-25 | Outpatient (CLI) | payer OTHER, SELFPAY ==
--- NOTE | 2023-02-25 | LES_PTH ---
PATIENT: HOLLIS CORDERO LOC: [facility] U#:[id number] AGE/SX: 57/F ROOM: RE02/25/[address]: Dr. Logan Fletcher MD : 1965 BED: DIS: 02/25/2023 SPEC #: [id number] RECD: 02/25/23 16:05 STATUS: KIERSTEN BETTENCOURT #: [id number] SERENA: 02/25/23 00:[address]: Logan Fletcher DEPT: SURGICAL PATHOLOGY RECD BY: Shyanne Rahman ENTERED: 02/26/23 08:00 SP TYPE: Lesion OTHR DR: Dr. Liza Mosley MD Tissues: A - Skin of arm B - Skin of leg, NOS Procedures: Surgery Specimen Level IV HEADER OPERATION: Excision of skin lesion left arm and left leg PRE-OP DIAGNOSIS: Skin lesion LLE and LUE TISSUE SUBMITTED: A ? Left lower arm, B ? Left lower leg MICROSCOPIC DIAGNOSIS A. Left lower arm skin lesion, excision: Dermatofibroma. Solar elastosis and hyperkeratosis. B. Left lower leg skin lesion, excision: Dermatofibroma. Hyperkeratosis. ALLEY:nate 02/27/2023 MICROSCOPIC DESCRIPTION Slides are reviewed. GROSS DESCRIPTION A - Received in fixative is one container labeled with the patient's name and designated left arm skin lesion. The specimen consists of a nicole-white skin ellipse measuring 0.7 x 0.3 x 0.2 cm. The specimen is inked, sectioned and submitted entirely in one cassette. B - Received in fixative is one container labeled with the patient's name and designated left leg skin lesion. The specimen consists of a piece of nicole-white skin measuring 0.6 x 0.3 x 0.2 cm. The specimen is serially sectioned and submitted entirely in one cassette. / ALLEY:nate 02/26/2023 TC:1 CPT: 00040 x2
== END | disposition home or self-care (01) ==
LOC: LABSPEC 16:13
PROVIDERS: PCP Family Medicine; Referring Provider Surgery; Visit Provider Surgery
DX: L98.9 Disorder of the skin and subcutaneous tissue, unspecified (principal)
CPT/HCPCS: 88305

== ENCOUNTER → 2023-06-28 | Outpatient (CLI) | payer OTHER, SELFPAY ==
--- NOTE | 2023-06-28 07:45 | BI_ITS ---
MAMMOGRAPHY - BILATERAL SCREENING REASON FOR EXAM: Female, 57 years old. Routine annual screening examination. PERTINENT HISTORY: Personal history of breast cancer. Right lumpectomy with radiation therapy. Right breast implant. TECHNIQUE: Digital bilateral breast lamonte (3D mammographic acquisition) in the CC and MLO projections. 2-D mediolateral oblique (MLO) and craniocaudad (CC) views of both breasts were obtained. CAD: Full Field Digital Mammography with Computer Added Detection was performed. COMPARISON: Comparison is made with prior study dated July 20, 2022 and July 14, 2021. FINDINGS: Breast Composition: The breasts are heterogeneously dense, which may obscure small masses. There are no dominant masses or suspicious calcifications. Consent, the patient is status post lumpectomy in the deep upper lateral aspect of the right breast with resultant postoperative deformity. A breast implant is seen. Surgical clips are also seen in the right axilla. No other significant abnormalities are identified. There has been no significant change since the prior study. BI/SCRN MAMM (CAD)W/LAMONTE BILAT IMPRESSION: Stable bilateral screening mammogram. Yearly follow-up mammogram recommended. (A) ASSESSMENT CATEGORY: BIRADS Category 2: Benign. A letter regarding these results will be sent to the patient by the facility within 30 days. Approximately 10% of breast cancers are not detected by mammography. A normal mammogram should not delay biopsy of a clinically suspicious abnormality. [id number] Electronically Signed: Claus Ambriz MD at 15:23 EDT ,
== END | disposition home or self-care (01) ==
LOC: OPBI 07:44
PROVIDERS: PCP Family Medicine; Referring Provider Surgery; Visit Provider Surgery
DX: Z12.31 Encounter for screening mammogram for malignant neoplasm of breast (principal); Z85.3 Personal history of malignant neoplasm of breast; Z98.82 Breast implant status
CPT/HCPCS: 77063; 77067

== ENCOUNTER → 2023-06-29 | Outpatient (CLI) | payer OTHER, SELFPAY ==
[2023-06-29 11:38] LABS: Glucose 130 mg/dL (74-106)
== END | disposition home or self-care (01) ==
LOC: LAB 10:56
PROVIDERS: PCP Family Medicine; Visit Provider Family Medicine
DX: E11.9 Type 2 diabetes mellitus without complications (principal)
CPT/HCPCS: 36415; 82947

== ENCOUNTER → 2023-09-30 | Outpatient (CLI) | payer OTHER, SELFPAY ==
[2023-09-30 13:53] LABS: AST(SGOT) 16 U/L (15-37); Alanine Aminotransfer ALT/SGPT 25 U/L (13-56); Albumin, Serum 3.8 g/dL (3.2-5.0); Alkaline Phosphatase 74 U/L (45-117); Anion Gap 6 (5-15); BUN 16 mg/dL (7-18); BUN/Creat Ratio 16.9 RATIO (10-20); Bilirubin, Direct 0.19 mg/dL (0.00-0.30); Calcium,Total 9.3 mg/dL (8.5-10.1); Chloride 107 mmol/L (98-107); Cholesterol 209 mg/dL (200); Creatinine, Serum 0.95 mg/dL (0.55-1.02); EST Glomerular Filtration Rate 64 mL/min (>60); Est Glom Filt Rate - Afr Amer 78 mL/min (>60); Globulin 3.7 g/dL (2.2-4.2); Glucose 120 mg/dL (74-106); High Density Lipoprotein 85 mg/dL; Potassium 3.9 mmol/L (3.5-5.1); Protein, Total 7.5 g/dL (6.4-8.2); Sodium Level 140 mmol/L (136-145); Triglycerides 76 mg/dL; Very Low Density Lipoprotein 15 mg/dL (5-40)
[2023-09-30 14:46] LABS: Microalbumin,Random Urine 11.9 mg/L (NO RANGE EST.); Microalbumin:Creatinine Ratio 9.2 mg/g CRE (<30 mg/g CRE)
== END | disposition home or self-care (01) ==
LOC: MFPLAB 11:15
PROVIDERS: PCP Family Medicine; Visit Provider Family Medicine
DX: E11.69 Type 2 diabetes mellitus with other specified complication (principal)
CPT/HCPCS: 36415; 80048; 80061; 80076; 82043; 82570

== ENCOUNTER → 2024-07-31 | Outpatient (CLI) | payer OTHER, SELFPAY ==
--- NOTE | 2024-07-31 15:28 | BI_ITS ---
MAMMOGRAPHY - BILATERAL SCREENING REASON FOR EXAM: Female, 58 years old. Routine annual screening examination. PERTINENT HISTORY: Personal history of breast cancer. Prior right lumpectomy and radiation therapy. Right breast implant. Left breast reduction due to left fat necrosis. TECHNIQUE: Digital bilateral breast lamonte (3D mammographic acquisition) in the CC and MLO projections. 2-D mediolateral oblique (MLO) and craniocaudad (CC) views of both breasts were obtained. CAD: Full Field Digital Mammography with Computer Added Detection was performed. COMPARISON: Comparison is made with prior study dated June 28, 2023 and July 20, 2022. FINDINGS: Breast Composition: The breasts are heterogeneously dense, which may obscure small masses. There are no dominant masses or suspicious calcifications. Stable appearance of the right breast implant. The patient is status post lumpectomy in the deep upper lateral aspect of the right breast with resultant postoperative deformity. Surgical clips are once again seen in the right axilla. No other significant abnormalities are identified. There has been no significant change since the prior study. BI/SCRN MAMM (CAD)W/LAMONTE BILAT IMPRESSION: Stable bilateral screening mammogram. Yearly follow-up mammogram recommended. (A) ASSESSMENT CATEGORY: BIRADS Category 2: Benign. A letter regarding these results will be sent to the patient by the facility within 30 days. Approximately 10% of breast cancers are not detected by mammography. A normal mammogram should not delay biopsy of a clinically suspicious abnormality. [id number] Electronically Signed: Claus Ambriz MD at 8:19 EST ,
== END | disposition home or self-care (01) ==
LOC: OPBI 15:26
PROVIDERS: PCP Family Medicine; Referring Provider Nurse Practitioner Women's Health; Visit Provider Nurse Practitioner Women's Health
DX: Z12.31 Encounter for screening mammogram for malignant neoplasm of breast (principal); Z85.3 Personal history of malignant neoplasm of breast
CPT/HCPCS: 77063; 77067

== ENCOUNTER → 2024-09-07 | Outpatient (CLI) | payer OTHER, SELFPAY ==
[2024-09-07 12:26] LABS: AST(SGOT) 17 U/L (15-37); Alanine Aminotransfer ALT/SGPT 30 U/L (13-56); Albumin, Serum 3.5 g/dL (3.2-5.0); Alkaline Phosphatase 81 U/L (45-117); Anion Gap 4 (5-15); BUN 15 mg/dL (7-18); BUN/Creat Ratio 14.7 RATIO (10-20); Bilirubin, Direct 0.12 mg/dL (0.00-0.30); Calcium,Total 9.1 mg/dL (8.5-10.1); Chloride 107 mmol/L (98-107); Cholesterol 190 mg/dL (200); Creatinine, Serum 1.02 mg/dL (0.55-1.02); EST Glomerular Filtration Rate 59 mL/min (>60); Est Glom Filt Rate - Afr Amer 71 mL/min (>60); Globulin 3.6 g/dL (2.2-4.2); Glucose 140 mg/dL (74-106); High Density Lipoprotein 79 mg/dL; Protein, Total 7.1 g/dL (6.4-8.2); Sodium Level 139 mmol/L (136-145); Triglycerides 240 mg/dL; Very Low Density Lipoprotein 48 mg/dL (5-40)
[2024-09-07 12:45] LABS: Protein, Urine (Random) 12.2 mg/dL (<11.9); Protein:Creat Ratio 83 mg/g CRE (0-200)
== END | disposition home or self-care (01) ==
LOC: MFPLAB 10:43
PROVIDERS: PCP Family Medicine; Referring Provider Family Medicine; Visit Provider Family Medicine
DX: E11.69 Type 2 diabetes mellitus with other specified complication (principal); E78.5 Hyperlipidemia, unspecified
CPT/HCPCS: 36415; 80048; 80061; 80076; 82570; 84156; 84443

== ENCOUNTER 2025-04-14 09:15 | Outpatient (RCR) | payer OTHER, SELFPAY ==
[2025-03-31 08:56] VITALS: BP 141/69; PULSE 88; RESP 16; TEMP 36.2; BMI 33.3
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
--- NOTE | 2025-03-31 14:19 | WC ---
PHOTO 03/31/[address] [facility] LOWER LEG
[2025-04-14 09:38] VITALS: BP 127/86; TEMP 36.7; BMI 33.3
--- NOTE | 2025-04-14 12:51 | PN.PCM_ITS ---
History of Present Illness Date of Service: 04/14/25 Chief Complaint: Full-thickness wound right ankle secondary to trauma History of Wound: Full-thickness wound right ankle secondary to trauma Progress of Wound: Stable healing full-thickness wound right calf. Subjective Subjective Patient is a 59-year-old female presented to wound care center today for follow- up evaluation of full-thickness wound to the right calf area secondary to trauma. The patient has been doing dressing changes as discussed with moist Kathy and dry sterile dressing and compression wrap. Patient states that her wound is over 50% healed. She has no pain to right lower extremity. She denies any drainage. She states there is no redness. She is very grateful for her care. Denies any new onset of trauma. Denies constitutional symptoms. No other pedal complaints at this time. Objective Data Objective Data Vital Signs: Vital Signs Temp Pulse Resp BP O2 Del Method 98.1 F 88 16 127/86 H Room Air 04/14/25 09:38 03/31/25 08:56 03/31/25 08:56 04/14/25 09:38 04/14/25 09:38 Oxygen Delivery Method Room Air Weight: 87.997 kg Body Mass Index (BMI) 33.3 Physical Exam Narrative Vascular: DP and PT pulse are palpable to right lower extremity. CFT is brisk. Skin temperature is warm to warm from proximal ankles to distal digit to the right lower extremity. No erythema or increase in warmth is appreciated. No hemosiderin deposits are noted. Nonpitting edema appreciated to the right lower extremity. Neurological: Light touch intact. Patient does follow painful stimuli. Dermatological: Full-thickness wound appreciated to the right posterior ankle measuring 0.8 x 0.8 x 0.1 cm wound base is granular with no sign of infection. Improving hematoma to the right ankle. Excisional debridement down to including subcutaneous tissue of the right posterior ankle full-thickness wound done without incident. Predebridement measurements are 0.7 x 0.6 x 0.1 cm. Postdebridement measurements are 0.8 x 0.8 x 0.1 cm. Musculoskeletal: Muscle strength 5 out of 5 in all quadrants right lower extremity. No pain to the full-thickness wound. No pain with calf pressure. Debridement Note Debridement Note Debridement Free Text: Excisional debridement down to including subcutaneous tissue of the right posterior ankle full-thickness wound done without incident. Predebridement measurements are 0.7 x 0.6 x 0.1 cm. Postdebridement measurements are 0.8 x 0.8 x 0.1 cm. Post-Debridement Measurements and Additional Note: Post-Debridement Measurements/Treatment - Nurse 1 - General Ulcer Assessment Start: 03/31/25 08:56 Freq: Status: Active Protocol: WILFRED Activity Type Activity Date Activity User E-sign Co-sign Detail Recorded Client Recorded Date Recorded By Document 03/31/25 08:56 [id number] 03/31/25 09:08 Document 04/14/25 09:38 MT [id number] 04/14/25 09:41 MT 03/31/25 04/14/25 08:56 09:38 WC - Today's Visit Information Type of service Initial Visit Follow-up Visit (Physician/DATA ANALYTICS SPECIALIST ) Arrival Mode Ambulatory Ambulatory Accompanied by self Patient Identification Verified (Name & Yes Yes ) Patient Requires Transmission-Based No Precautions Safety Precautions Fall Prevention Height and Weight Height 5 ft 4 in Weight 87.997 kg Weight in Pounds 194.0 lbs Weight Measurement Method Stated by Patient Body Mass Index (BMI) 33.3 33.3 BMI Classification Obese Obese Vital Signs Temperature (97.8 F-99.1 F) 97.2 F L 98.1 F Temperature Source Temporal Temporal Pulse Rate (60-100) 88 Pulse Location Monitor Monitor Respiratory Rate (12-18) 16 Respiratory rate source Observation Observation Oxygen Delivery Method Room Air Room Air Blood Pressure (90/60-120/80) 141/69 H 127/86 H Blood Pressure Mean (mm Hg) 93 99 Source Monitor Monitor Position Sitting Sitting Blood Pressure Location Left Arm Right Arm History Since Last Visit- (Skip if this is Patient's initial visit) Has dressing in place as prescribed Yes Has compression in place as prescribed Yes Has offloadiing in place as prescribed Yes Experienced any changes in pain level or Yes management Left Footwear Regular Shoe Regular Shoe Right Footwear Regular Shoe Regular Shoe Pain Scale: 0-10 Numeric Is Patient Pain Free? Yes Yes ALLISON - Nurse 1 - General Ulcer Measurement Start: 03/31/25 08:56 Freq: Status: Active Protocol: Activity Type Activity Date Activity User E-sign Co-sign Detail Recorded Client Recorded Date Recorded By Document 03/31/25 08:56 [id number] 03/31/25 09:08 CP Document 04/14/25 09:38 MT [id number] 04/14/25 09:41 FL 03/31/25 04/14/25 08:56 09:38 Wound Center Nurse 1 1. right medial lower leg -Current Size (cm) - Length 1.2 1 -Current Size (cm) - Width 2.2 0.6 -Current Size (cm) - Depth 0.1 0.1 -Total Square Cm 2.64 0.6 -Date of Last Picture (Recall this 04/14/25 field) -Photo Taken Yes Yes -Tunneling No -Undermining/Tunneling No -Circular Undermining No -Classification - Thickness Unclassifiable (Eschar Covered ) -Exudate Amt Small Small -Exudate Type Serous Serosanguineous -Wound Margin Flat & Intact -Granulation Amt Large (67-100%) -Granulation Quality Pale,[place] -Necrosis Amt Small (1-33%) -Necrotic Tissue Type Adherent Slough -Texture (Marcia-wound Skin Appearance) No Abnormality Assessed -Moisture (Marcia-wound Skin Appearance) No Abnormality Assessed -Color (Marcia-wound Skin Appearance) No Abnormality Assessed -Temperature (Marcia-wound Skin No Abnormality No Abnormality Appearance) (Pt Warm) (Pt Warm) -Tenderness on Palpation (Marcia-wound No No Skin Appearance) -Ulcer Cleansing Soap and Water Soap and Water -Foul Odor after Cleansing No No -Anesthetic Used 5% Lidocaine 5% Lidocaine Gel Gel Lower Limb Edema Present NA Right Calf (cm) 45 Right Ankle (cm) 24 WC - Nurse 2 - General Ulcer CM Notes Start: 03/31/25 08:56 Freq: Status: Active Protocol: Activity Type Activity Date Activity User E-sign Co-sign Detail Recorded Client Recorded Date Recorded By Document 03/31/25 09:20 [id number] 03/31/25 09:24 Document 04/14/25 09:49 [id number] [id number] 04/14/25 09:59 03/31/25 04/14/25 09:20 09:49 Wound Center Nurse 2 1. right medial lower leg -Time 09:22 09:52 -Correct Patient Yes Yes -Correct Side, Site, Position Yes Yes -Correct Procedure Yes Yes -Procedure Performed Yes Yes -Type of Procedure Debridement Debridement -Clinical Debridement Subcutaneous Subcutaneous -Tissue Removed Subcutaneous Subcutaneous -Post Debridement (cm) - Length 2 0.8 -Post Debridement (cm) - Width 1.2 0.8 -Post Debridement (cm) - Depth 0.2 0.1 -Total Square (Post) (cm) 2.4 0.64 -Area of Debridement (cm) - Length 2.0 0.8 -Area of Debridement (cm) - Width 1.2 0.8 -Total Square (Area) (cm) 2.40 0.64 -Tunneling No No -Undermining/Tunneling No No -Circular Undermining No No -Wound/Ulcer Outcome Not Healed Not Healed -Ulcer Cleansing Rinsed/ Rinsed/ Irrigated with Irrigated with Saline Saline -Foul Odor after Cleansing No No -Bioengineered Tissue No No -Bleeding Controlled with Pressure Pressure -Treatment Response Procedure Procedure Tolerated Well Tolerated Well -Offloading No No -Debridement - Subq, 1st 20sq cm Yes Yes Pain Scale: 0-10 Numeric Is Patient Pain Free? Yes Yes - Nurse 3 - General Ulcer D/C NN Start: 03/31/25 08:56 Freq: Status: Active Protocol: Activity Type Activity Date Activity User E-sign Co-sign Detail Recorded Client Recorded Date Recorded By Document 03/31/25 09:42 [id number] 03/31/25 09:44 Document 04/14/25 10:00 [id number] 04/14/25 10:00 03/31/25 04/14/25 09:42 10:00 Wound Care Center Nurse 3 1. right medial lower leg -Ulcer Cleansing Rinsed/ Rinsed/ Irrigated with Irrigated with Saline Saline -Foul Odor after Cleansing No No -Primary Dressing Applied Promogran Promogran Kathy Matter Kathy Matter -Primary Dressing Covered/Secured with Dry Gauze, Secured with Tape -Promogran Kathy Matter 2 1 -Silicone Border Foam 4x4 1 RLE -Size D ($) 1 Treatment Response Procedure Tolerated Well Pain Scale: 0-10 Numeric Is Patient Pain Free? Yes Yes - Visit Discharge Discharge Condition Stable Stable Ambulatory Status Ambulatory Ambulatory Transportation Private Auto Private Auto Medication Reconcilliation completed & No Yes provided to patient/care provider Clinical Summary of Care Provided Yes Yes Assessment/Plan Assessment/Plan (1) Non-pressure chronic ulcer of right ankle with fat layer exposed: CODE(S): L97.312 - Non-pressure chronic ulcer of right ankle with fat layer exposed PLAN: Patient was examined and evaluated. All findings were discussed with the patient. All questions were answered to the patient's satisfaction. Excisional debridement down to including subcutaneous tissue of the right posterior ankle full-thickness wound done without incident. Predebridement measurements are 0.7 x 0.6 x 0.1 cm. Postdebridement measurements are 0.8 x 0.8 x 0.1 cm. The areas were cleaned and patted dry. Moist Kathy and sterile Band-Aid was applied to the right lower extremity/ankle full-thickness wound. Patient will continue dressing changes every other day with Tubigrip wrap. Patient educated importance of increased protein in time of healing. Patient is very grateful for care. Follow-up at the wound care center with Dr. Arias in 2 week.
== END 2025-04-15 23:59 | disposition home or self-care (01) ==
LOC: WC 09:15
PROVIDERS: PCP Family Medicine; Referring Provider Family Medicine; Visit Provider Podiatrist Foot & Ankle Surgery
DX: L97.312 Non-pressure chronic ulcer of right ankle with fat layer exposed (principal); E11.9 Type 2 diabetes mellitus without complications; S91.001S Unspecified open wound, right ankle, sequela; W22.09XS Striking against other stationary object, sequela; E78.5 Hyperlipidemia, unspecified; I10 Essential (primary) hypertension; Z79.84 Long term (current) use of oral hypoglycemic drugs; Z79.899 Other long term (current) drug therapy
CPT/HCPCS: 11042; 99214; G0463

== ENCOUNTER 2025-04-28 13:12 | Outpatient (RCR) | payer OTHER, SELFPAY ==
[2025-04-28 12:55] VITALS: BP 125/81; PULSE 84; RESP 18; TEMP 36.3
--- NOTE | 2025-04-28 13:44 | PCM.WC.PN ---
History of Present Illness Date of Service: 04/28/25 Chief Complaint: Full-thickness wound right ankle secondary to trauma History of Wound: Full-thickness wound right ankle secondary to trauma Progress of Wound: Healed full-thickness wound to the right ankle. Subjective Subjective Patient is a 59-year-old diabetic female present to wound care center today follow-up evaluation of full-thickness wound secondary to trauma to the right ankle. Patient has been doing dressing changes as discussed. She admits that the wound is now healed. Her blood sugar is well-controlled. She denies any new onset of trauma. Denies constitutional symptoms. No other pedal complaints at this time. Objective Data Objective Data Vital Signs: Vital Signs Temp Pulse Resp BP O2 Del Method 97.4 F L 84 18 125/81 H Room Air 04/28/25 12:55 04/28/25 12:55 04/28/25 12:55 04/28/25 12:55 04/28/25 12:55 Oxygen Delivery Method Room Air Physical Exam Narrative Vascular: DP and PT pulse are palpable to right lower extremity. CFT is brisk. Skin temperature is warm to warm from proximal ankles to distal digit to the right lower extremity. No erythema or increase in warmth is appreciated. No hemosiderin deposits are noted. Nonpitting edema appreciated to the right lower extremity. Neurological: Light touch intact. Patient does follow painful stimuli. Dermatological: Full-thickness wound to the right ankle is now healed. No concern for infection Musculoskeletal: Muscle strength 5 out of 5 in all quadrants right lower extremity. No pain to the full-thickness wound. No pain with calf pressure. Debridement Note Debridement Note Post-Debridement Measurements and Additional Note: Post-Debridement Measurements/Treatment [facility] Nurse 1 - General Ulcer Assessment Start: 04/28/25 12:55 Freq: Status: Active Protocol: [email or web address] Activity Type Activity Date Activity User E-sign Co-sign Detail Recorded Client Recorded Date Recorded By Document 04/28/25 12:55 ID [id number] 04/28/25 12:56 ID 04/28/25 12:55 - Today's Visit Information Type of service Follow-up Visit (Physician/[employer] ) Arrival Mode Ambulatory Patient Identification Verified (Name & Yes ) Vital Signs Temperature (97.8 F-99.1 F) 97.4 F L Temperature Source Temporal Pulse Rate (60-100) 84 Pulse Location Monitor Respiratory Rate (12-18) 18 Respiratory rate source Observation Oxygen Delivery Method Room Air Blood Pressure (90/60-120/80) 125/81 H Blood Pressure Mean (mm Hg) 95 Source Monitor Position Semi-Fowlers Blood Pressure Location Right Arm History Since Last Visit- (Skip if this is Patient's initial visit) Have you changed medications since your No last visit? Any new allergies or adverse reactions No Had a fall/change in ADL's that may No increase risk of falls Signs or symptoms of abuse and/or No neglect since last visit Have you been in the hospital since your No last visit? Has dressing in place as prescribed Yes Has compression in place as prescribed N/A Has offloadiing in place as prescribed N/A Experienced any changes in pain level or No management Left Footwear Regular Shoe Right Footwear Regular Shoe Pain Scale: 0-10 Numeric Is Patient Pain Free? Yes ALLISON - Nurse 1 - General Ulcer Measurement Start: 04/28/25 12:55 Freq: Status: Active Protocol: Activity Type Activity Date Activity User E-sign Co-sign Detail Recorded Client Recorded Date Recorded By Document 04/28/25 12:55 ID [id number] 04/28/25 12:56 ID 04/28/25 12:55 Wound Center Nurse 1 1. right medial lower leg -Current Size (cm) - Length 0.1 -Current Size (cm) - Width 0.1 -Current Size (cm) - Depth 0 -Total Square Cm 0.01 -Date of Last Picture (Recall this 04/28/25 field) -Exudate Amt None Present -Wound Margin Distinct, Outline Attached -Texture (Marcia-wound Skin Appearance) Assessed -Moisture (Marcia-wound Skin Appearance) Assessed -Color (Marcia-wound Skin Appearance) Assessed -Temperature (Marcia-wound Skin No Abnormality Appearance) (Pt Warm) -Tenderness on Palpation (Marcia-wound No Skin Appearance) -Ulcer Cleansing Rinsed/ Irrigated with Saline -Foul Odor after Cleansing No -Anesthetic Used 5% Lidocaine Gel WC - Nurse 2 - General Ulcer CM Notes Start: 04/28/25 12:55 Freq: Status: Active Protocol: Activity Type Activity Date Activity User E-sign Co-sign Detail Recorded Client Recorded Date Recorded By Document 04/28/25 13:07 [email or web address] [id number] 04/28/25 13:17 04/28/25 13:07 Wound Center Nurse 2 -Correct Patient Yes -Correct Side, Site, Position No -Correct Procedure No -Procedure Performed No -Post Debridement (cm) - Length 0 -Post Debridement (cm) - Width 0 -Post Debridement (cm) - Depth 0 -Total Square (Post) (cm) 0 -Area of Debridement (cm) - Length 0 -Area of Debridement (cm) - Width 0 -Total Square (Area) (cm) 0 -Wound/Ulcer Outcome Healed- Epithelialized Pain Scale: 0-10 Numeric Is Patient Pain Free? Yes - Nurse 3 - General Ulcer D/C NN Start: 04/28/25 12:55 Freq: Status: Active Protocol: Activity Type Activity Date Activity User E-sign Co-sign Detail Recorded Client Recorded Date Recorded By Document 04/28/25 13:17 [id number] 04/28/25 13:17 04/28/25 13:17 Is Patient Pain Free? Yes WC - Visit Discharge Discharge Condition Stable Transportation Private Auto Medication Reconcilliation completed & Yes provided to patient/care provider Clinical Summary of Care Provided Yes Assessment/Plan Assessment/Plan (1) Non-pressure chronic ulcer of right ankle with fat layer exposed: CODE(S): L97.312 - Non-pressure chronic ulcer of right ankle with fat layer exposed PLAN: Patient was examined and evaluated. All findings were discussed with the patient. All questions were answered to the patient's satisfaction. At this time the patient's full-thickness wound to the right ankle is now healed. Educated patient on signs and symptoms of infection. Encouraged patient to continue strict blood sugar control. I recommended compression even though the patient feels that her leg are not swollen anymore. The patient has any issues she can reach out to the wound care center follow-up with me in private office. Patient will be discharged from the wound care center today. She left the office pleased with the visit.
--- NOTE | 2025-04-29 09:58 | WC ---
PHOTO-RIGHT MED LEG 04/28/25
== END 2025-05-13 07:49 | disposition home or self-care (01) ==
LOC: WC 13:12
PROVIDERS: PCP Family Medicine; Referring Provider Family Medicine; Visit Provider Podiatrist Foot & Ankle Surgery
DX: Z09 Encounter for follow-up examination after completed treatment for conditions other than malignant neoplasm (principal); E11.9 Type 2 diabetes mellitus without complications; Z79.84 Long term (current) use of oral hypoglycemic drugs; Z79.899 Other long term (current) drug therapy
CPT/HCPCS: 99213; G0463